=== PATIENT | male | born 1990 | race Caucasian/White ===

== ENCOUNTER 2018-11-30 19:20 | Observation (INO) ==
[2018-11-30] MEDS ORDERED: SODIUM CHLORIDE 0.9% 1000ML 1,000 ML IV ONE (19:49)
--- NOTE | 2018-11-30 19:59 | Emergency Department Note ---
History of Present Illness General Chief complaint: Abdominal Pain Stated complaint: ABDOMINAL PAIN Time Seen by Provider: 11/30/18 19:26 History of Present Illness Maximum Pain Intensity: 2 28-year-old male who presents the emergency department with complaint of right lower quadrant abdominal pain. The patient reports that he noticed the discomfort around midday yesterday. The patient reports that the pain was initially intermittent in nature, but is now more constant. The patient reports that the pain has not changed in position. The pain does not radiate to the back. The patient reports that he has had normal urinary and stool patterns. The patient reports that the pain does seem to be slightly worsened with movement. He denies any fevers, chills, nausea or vomiting. He denies any prior history of bowel disease, and rates his discomfort a 2 out of 10. Allergies Allergy/AdvReac Type Severity Reaction Status Date / Time No Known Allergies Allergy Unverified 11/30/18 22:11 Past Med/Surg History Medical History No significant past medical history Surgical History No significant past surgical history Social History current occupational status: employed Feels Safe at Home: Yes Smoking Status: Never smoker Review of Systems 10 system review was performed and was negative except for pertinent positives and negatives as indicated in history of present illness Physical Exam Vital Signs Vital Signs - 24 hr 11/30/18 19:23 11/30/18 21:20 11/30/18 21:34 Temperature 37.1 C Temperature Source Oral Sepsis Recent Fever Within 48 Hours No Sepsis New/Unexplained Change in Mental Status No Sepsis Action Taken by Nursing No Action Required Pulse Rate 91 H Pulse Rate [Finger] 83 Respiratory Rate 18 18 Respiratory Effort / Characteristics Non-Labored Spontaneous Respiratory Depth Normal Respiratory Pattern Regular Blood Pressure 158/83 H Blood Pressure [Left Arm] 164/93 H Blood Pressure Mean 108 Blood Pressure Mean [Left Arm] 116 Blood Pressure Position Sitting Pulse Oximetry 98 99 Oxygen Delivery Method Room Air Room Air Room Air CONSTITUTIONAL: Healthy and well nourished. Alert and oriented X 3. Patient does not appear in any acute distress. HEENT: Normocephalic, atraumatic. Pupils equal, round and reactive. No scleral icterus or conjunctival injection. NECK: Full active range of motion without discomfort. LYMPHATICS: No cervical chain adenopathy. RESPIRATORY: Clear to auscultation bilaterally with no wheezing, crackles, rhonchi or stridor. CARDIOVASCULAR: Regular rate and rhythm with no murmurs, rubs or gallops. Mildly positive right lower quadrant tenderness to palpation. I am also able to elicit a mild Rovsing sign. Negative psoas/obturator sign. Negative heel tap. Negative CVA tenderness. No abdominal rigidity, guarding or rebound. GASTROINTESTINAL: Bowel sounds present in all quadrants. MUSCULOSKELETAL: Full range of motion of all joints without discomfort. INTEGUMENTARY: No rash or other significant dermatologic conditions noted. HEMATOLOGIC: No ecchymosis or petechiae. PSYCHIATRIC: Positive affect. NEUROLOGIC: No focal neurologic deficits noted. Course Patient history and physical exam were performed. Nurse's notes were reviewed. Vital signs were reviewed, showing an elevated blood pressure of 158/83. The patient refused any analgesics or antiemetics. IV access was established, and labs were drawn. Labs were reviewed and were grossly normal. Urinalysis is also unremarkable without evidence for hematuria or signs of infection. CT of the abdomen and pelvis with IV contrast confirms a mild appendicitis. The case was further discussed with Dr. Harris, ED attending physician, who recommended surgical consultation. The case was further discussed with Dr. Conteh, who came to the emergency department for further evaluation. Please see his dictation for further treatment and final disposition. Administered Medications Ioversol (Optiray 320 100ml) 91 ml IV ONCE PRN PRN Reason: Interaction Checking Stop: 12/04/18 20:32 Last Admin: 11/30/18 20:33 Dose: 91 ml Documented by: [id number] Discontinued Medications Cefazolin Sodium (Ancef) Confirm Administered Dose 1,000 mg .ROUTE .STK-MED ONE Stop: 11/30/18 21:36 Last Admin: 11/30/18 23:30 Dose: 1,000 mg Documented by: [id number] Cefazolin Sodium (Ancef 2000mg) Confirm Administered Dose 2,000 mg IV .STK-MED ONE Stop: 11/30/18 22:03 Last Admin: 11/30/18 22:11 Dose: 2,000 mg Documented by: [id number] Heparin Sodium (Porcine) (Heparin Iv Bolus ([employer] Use Only)) Confirm Administered Dose 10,000 units .ROUTE .STK-MED ONE Stop: 11/30/18 21:36 Last Admin: 11/30/18 23:31 Dose: 5,000 units Documented by: [id number] Sodium Chloride (Nss 1000ml) 1,000 mls @ 999 mls/hr IV .Q1H1M ONE Stop: 11/30/18 20:49 Last Infusion: 11/30/18 20:43 Dose: 0 mls/hr Documented by: [id number] Admin: 11/30/18 19:50 Dose: 999 mls/hr Documented by: [id number] Miscellaneous (Floseal Hemostatic Matrix 10ml) 10 ml TOP ONCE ONE Stop: 11/30/18 23:27 Last Admin: 11/30/18 23:29 Dose: 10 ml Documented by: [id number] Medical Decision Making Medical Records Attestation: I reviewed the patient's medical records. Home Medications Current Medication List: was personally reviewed by me Laboratory Data Attestation: I reviewed the patient's lab results. Result diagrams: 11/30/18 19:57 11/30/18 19:57 Lab Results 11/30/18 11/30/18 11/30/18 Range/Units 19:41 19:57 19:57 WBC 8.50 (4.8-10.8) K/uL RBC 5.39 (4.7-6.1) M/uL Hgb 15.9 (14.0-18.0) g/dL Hct 43.8 (42-52) % MCV 81.3 (80-100) fL MCH 29.5 (25-34) pg MCHC 36.3 H (32-36) g/dL RDW Std Deviation 38.7 (36.4-46.3) fL RDW Coeff of Domenica 13.0 (11.5-14.5) % Plt Count 185 (130-400) K/uL MPV 11.0 H (7.4-10.4) fL Immature Gran % (Auto) 0.1 % Neut % (Auto) 64.4 % Lymph % (Auto) 26.5 % [place] % (Auto) 5.5 % Eos % (Auto) 3.3 % Baso % (Auto) 0.2 % Immature Gran # (Auto) 0.01 (0.00-0.02) K/uL Neut # (Auto) 5.47 (1.4-6.5) K/uL Lymph # (Auto) 2.25 (1.2-3.4) K/uL [place] # (Auto) 0.47 (0.11-0.59) K/uL Eos # (Auto) 0.28 (0-0.5) K/uL Baso # (Auto) 0.02 (0-0.2) K/uL Sodium 138 (136-145) mmol/L Potassium 3.5 (3.5-5.1) mmol/L Chloride 106 (98-107) mmol/L Carbon Dioxide 27 (21-32) mmol/L Anion Gap 5.0 (3-11) BUN 13 (7-18) mg/dl Creatinine 1.25 (0.6-1.4) mg/dl Est Cr Clr Drug Dosing 106.3 ml/min Est GFR ( Amer) 90.9 Est GFR (Non-Af Amer) 78.4 BUN/Creatinine Ratio 10.1 (10-20) Glucose 106 H (70-99) mg/dl Calcium 8.9 (8.5-10.1) mg/dl Total Bilirubin 0.9 (0.2-1) mg/dl AST 19 (15-37) U/L ALT 24 (12-78) U/L Alkaline Phosphatase 84 (45-117) U/L Total Protein 7.7 (6.4-8.2) gm/dl Albumin 4.4 (3.4-5.0) gm/dl Globulin 3.3 (2.5-4.0) gm/dl Albumin/Globulin Ratio 1.3 (0.9-2) Lipase 81 (73-393) U/L Urine Color Yellow Urine Appearance Clear (Clear) Urine pH 6.0 (4.5-7.5) Ur Specific [place] 1.012 (1.000-1.030) Urine Protein Negative (Negative) Urine Glucose (UA) Negative (Negative) Urine Ketones Negative (Negative) Urine Blood Negative (Negative) Urine Nitrite Negative (Negative) Urine Bilirubin Negative (Negative) Urine Urobilinogen Negative (Negative) Ur Leukocyte Esterase Negative (Negative) Imaging Data Attestation: I personally reviewed and interpreted this imaging study as foll ows: My Impression: CT of the abdomen and pelvis with IV contrast shows a mild appendicitis. Radiologist report was also reviewed. Radiologist's Impression: CT OF THE ABDOMEN AND PELVIS WITH CONTRAST CLINICAL HISTORY: Right lower quadrant abdominal pain. COMPARISON STUDY: None. TECHNIQUE: Following IV administration of 91 mL of Optiray-320, axial images of the abdomen and pelvis were obtained from the lung bases to the proximal femurs. Images were reviewed in the axial, sagittal, and coronal planes. IV contrast was administered without complication. Automated exposure control was utilized for the study. A dose lowering technique was utilized adhering to the principles of ALARA. CT DOSE: 724.34 mGy.cm FINDINGS: Lung bases are clear. The liver, spleen, adrenal glands, kidneys and pancreas are normal. There is no biliary or pancreatic ductal dilatation. There is no hydronephrosis. The nephrograms are symmetric. There is no evidence for a bowel obstruction. Note is made of a 3 mm appendicolith within the mid appendix. The mid to distal appendix is mildly dilated, measuring 1 cm in caliber. There is minimal adjacent infiltration. There is no free air or abscess. No lymphadenopathy is present. There is no ascites. There are no suspicious osseous lesions. Major vasculature is patent. IMPRESSION: Mild acute appendicitis. No free air or abscess. Blood Pressure Blood Pressure Findings: Elevated blood pressure MDM Narrative CT findings today are consistent with acute appendicitis. The patient is currently afebrile and has no leukocytosis to suggest overwhelming infection. No free air is noted on CT to suggest perforation. CT scan also is not suggestive of bowel obstruction, diverticulitis or other acute findings. Laboratory studies are not consistent with UTI, pancreatitis, cholecystitis or hepatitis. Impression & Plan Acute appendicitis Discharge Plan Visit Data Chief Complaint: Abdominal Pain Stated Complaint: ABDOMINAL PAIN ED Provider: Lamberto Harris ED Midlevel Provider: Vikas Santiago Discharge Problem: Acute appendicitis Patient Disposition: Admitted As Inpatient Discharge Instructions Interventions: ED Discharge Assessment Last Done: 11/30/18 21:34 Forms Stand Alone Forms: [facility] Referrals Referrals: PCP,NO [Primary Care Provider] - Discharge Problem: Acute appendicitis Qualifiers: Acute appendicitis type: unspecified acute appendicitis type Qualified Code(s): K35.80 - Unspecified acute appendicitis
[2018-11-30 20:01] LABS: Basophils # (auto) 0.02 K/uL (0-0.2); Basophils % (auto) 0.2 %; Eosinophils # (auto) 0.28 K/uL (0-0.5); Eosinophils % (auto) 3.3 %; Hematocrit (blood only) 43.8 % (42-52); Hemoglobin 15.9 g/dL (14.0-18.0); Immature Granulocytes # (auto) 0.01 K/uL (0.00-0.02); Immature Granulocytes % (auto) 0.1 %; Lymphocytes # (auto) 2.25 K/uL (1.2-3.4); Lymphocytes % (auto) 26.5 %; Mean Corpuscular Hemoglobin 29.5 pg (25-34); Mean Corpuscular Hgb Conc 36.3 g/dL (32-36); Mean Corpuscular Volume 81.3 fL (80-100); Monocytes # (auto) 0.47 K/uL (0.11-0.59); Monocytes % (auto) 5.5 %; Neutrophils # (auto) 5.47 K/uL (1.4-6.5); Neutrophils % (auto) 64.4 %; Platelet Count 185 K/uL (130-400); RDW Standard Deviation 38.7 fL (36.4-46.3); Red Blood Count 5.39 M/uL (4.7-6.1)
[2018-11-30 20:19] LABS: Albumin Level 4.4 gm/dl (3.4-5.0); BUN Creatinine Ratio 10.1 (10-20); Calcium 8.9 mg/dl (8.5-10.1); Creatinine Clr Calc Pharmacy 106.3 ml/min; Est GFR (African American) 90.9; Est GFR (Non-African American) 78.4; Potassium 3.5 mmol/L (3.5-5.1)
[2018-11-30 20:22] LABS: Albumin Globulin Ratio 1.3 (0.9-2); Bilirubin,Total 0.9 mg/dl (0.2-1); Globulin 3.3 gm/dl (2.5-4.0); Total Protein 7.7 gm/dl (6.4-8.2)
[2018-11-30] MEDS ORDERED: IOVERSOL 100ml IV PRN (20:33)
[2018-11-30 20:42] LABS: Appearance Urine Clear (Clear); Bilirubin Urine Negative (Negative); Blood Urine Negative (Negative); Color Urine Yellow; Glucose Urine UA Negative (Negative); Ketones Urine Negative (Negative); Leukocyte Esterase Urine Negative (Negative); Nitrite Urine Negative (Negative); Protein Urine Negative (Negative); Specific Gravity Urine 1.012 (1.000-1.030); Urobilinogen Urine Negative (Negative)
--- NOTE | 2018-11-30 20:53 | CT Scan Report ---
CT OF THE ABDOMEN AND PELVIS WITH CONTRAST CLINICAL HISTORY: Right lower quadrant abdominal pain. COMPARISON STUDY: None. TECHNIQUE: Following IV administration of 91 mL of Optiray-320, axial images of the abdomen and pelvi s were obtained from the lung bases to the proximal femurs. Images were reviewed in the axial, sagitt al, and coronal planes. IV contrast was administered without complication. Automated exposure contro l was utilized for the study. A dose lowering technique was utilized adhering to the principles of A JAVON. CT DOSE: 724.34 mGy.cm FINDINGS: Lung bases are clear. The liver, spleen, adrenal glands, kidneys and pancreas are normal. T here is no biliary or pancreatic ductal dilatation. There is no hydronephrosis. The nephrograms are s ymmetric. There is no evidence for a bowel obstruction. Note is made of a 3 mm appendicolith within t he mid appendix. The mid to distal appendix is mildly dilated, measuring 1 cm in caliber. There is mi nimal adjacent infiltration. There is no free air or abscess. No lymphadenopathy is present. There is no ascites. There are no suspicious osseous lesions. Major vasculature is patent. IMPRESSION: Mild acute appendicitis. No free air or abscess. Electronically signed by: Rahat Charles M.D. 11/30/2018 8:52 PM
[2018-11-30] MEDS ORDERED: BUPIVACAINE 0.5 % 5 MG/1 ML MPF 30ML VIAL ONE (21:35)
[2018-11-30] MEDS ORDERED: HEPARIN (PORCINE) 1000 UNIT/ML 10 ML (CATH LAB USE ONLY) ONE (21:35)
[2018-11-30] MEDS ORDERED: CEFAZOLIN 250 MG/ML 1 GM VIAL ONE (21:35)
--- NOTE | 2018-11-30 21:43 | History & Physical Report ---
Date of Service November 30, 2018 Assessment & Plan (1) Acute appendicitis: This patient's history physical examination and CT findings for which I reviewed the images as well as the report are consistent with acute appendicitis. He has an appendicolith which would make antibiotic treatment contraindicated. I explained to him the laparoscopic appendectomy and the possible need to convert to an open procedure. I explained the possible complications associated with the procedure and he understands. I answered his questions and he has signed a consent form. History of Present Illness Chief Complaint: Right lower quadrant pain Primary Care Provider: NO PCP This is a 28-year-old male who presented to the emergency room with a complaint of pain in the right lower quadrant that began sometime yesterday. He is unsure as to exactly when. The pain is always been located in the right lower quadrant. It is exacerbated by movement. He is never had pain like this before. It has not been associated with nausea, vomiting, fever, chills, change in bowel habits, change in bladder habits, melena, hematochezia, dysuria or hematuria. He has not had fever or chills. Past Med/Surg History Medical History No significant past medical history Surgical History No significant past surgical history Social History current occupational status: employed Feels Safe at Home: Yes Smoking Status: Never smoker Review of Systems Review of Systems: All systems reviewed & are unremarkable except as noted in HPI & below Physical Exam Constitutional: + acute distress Neck: trachea midline Respiratory: normal respiratory effort, lungs clear to auscultation Cardiovascular: Rate/Rhythm: regular rate and regular rhythm Gastrointestinal (Abdomen): Inspection/Auscultation: abdomen normal to inspection and normal bowel sounds; abdomen not distended Percussion/Palpation: + abdomen tender (Moderate to severe tenderness to light to moderate palpation in the right lower quadrant) and abdomen soft Skin: no rashes, warm and dry Lymphatic: no cervical lymphadenopathy and no subclavicular lymphadenopathy Results & Data Vital Signs (Past 12 Hours) Vital Signs Temp Pulse Pulse Resp BP BP Pulse Ox 11/30/18 21:20 83 18 164/93 H 99 11/30/18 19:23 37.1 C 91 H 18 158/83 H 98 Laboratory Results 11/30/18 11/30/18 11/30/18 Range/Units 19:57 19:57 19:41 WBC 8.50 (4.8-10.8) K/uL RBC 5.39 (4.7-6.1) M/uL Hgb 15.9 (14.0-18.0) g/dL Hct 43.8 (42-52) % MCV 81.3 (80-100) fL MCH 29.5 (25-34) pg MCHC 36.3 H (32-36) g/dL RDW Std Deviation 38.7 (36.4-46.3) fL RDW Coeff of Domenica 13.0 (11.5-14.5) % Plt Count 185 (130-400) K/uL MPV 11.0 H (7.4-10.4) fL Immature Gran % (Auto) 0.1 % Neut % (Auto) 64.4 % Lymph % (Auto) 26.5 % [place] % (Auto) 5.5 % Eos % (Auto) 3.3 % Baso % (Auto) 0.2 % Immature Gran # (Auto) 0.01 (0.00-0.02) K/uL Neut # (Auto) 5.47 (1.4-6.5) K/uL Lymph # (Auto) 2.25 (1.2-3.4) K/uL [place] # (Auto) 0.47 (0.11-0.59) K/uL Eos # (Auto) 0.28 (0-0.5) K/uL Baso # (Auto) 0.02 (0-0.2) K/uL Sodium 138 (136-145) mmol/L Potassium 3.5 (3.5-5.1) mmol/L Chloride 106 (98-107) mmol/L Carbon Dioxide 27 (21-32) mmol/L Anion Gap 5.0 (3-11) BUN 13 (7-18) mg/dl Creatinine 1.25 (0.6-1.4) mg/dl Est Cr Clr Drug Dosing 106.3 ml/min Est GFR ( Amer) 90.9 Est GFR (Non-Af Amer) 78.4 BUN/Creatinine Ratio 10.1 (10-20) Glucose 106 H (70-99) mg/dl Calcium 8.9 (8.5-10.1) mg/dl Total Bilirubin 0.9 (0.2-1) mg/dl AST 19 (15-37) U/L ALT 24 (12-78) U/L Alkaline Phosphatase 84 (45-117) U/L Total Protein 7.7 (6.4-8.2) gm/dl Albumin 4.4 (3.4-5.0) gm/dl Globulin 3.3 (2.5-4.0) gm/dl Albumin/Globulin Ratio 1.3 (0.9-2) Lipase 81 (73-393) U/L Urine Color Yellow Urine Appearance Clear (Clear) Urine pH 6.0 (4.5-7.5) Ur Specific [place] 1.012 (1.000-1.030) Urine Protein Negative (Negative) Urine Glucose (UA) Negative (Negative) Urine Ketones Negative (Negative) Urine Blood Negative (Negative) Urine Nitrite Negative (Negative) Urine Bilirubin Negative (Negative) Urine Urobilinogen Negative (Negative) Ur Leukocyte Esterase Negative (Negative) Diagnostic Findings CT OF THE ABDOMEN AND PELVIS WITH CONTRAST CLINICAL HISTORY: Right lower quadrant abdominal pain. COMPARISON STUDY: None. TECHNIQUE: Following IV administration of 91 mL of Optiray-320, axial images of the abdomen and pelvis were obtained from the lung bases to the proximal femurs. Images were reviewed in the axial, sagittal, and coronal planes. IV contrast was administered without complication. Automated exposure control was utilized for the study. A dose lowering technique was utilized adhering to the principles of ALARA. CT DOSE: 724.34 mGy.cm FINDINGS: Lung bases are clear. The liver, spleen, adrenal glands, kidneys and p ancreas are normal. There is no biliary or pancreatic ductal dilatation. There is no hydronephrosis. The nephrograms are symmetric. There is no evidence for a bowel obstruction. Note is made of a 3 mm appendicolith within the mid appendix. The mid to distal appendix is mildly dilated, measuring 1 cm in caliber. There is minimal adjacent infiltration. There is no free air or abscess. No lymphadenopathy is present. There is no ascites. There are no suspicious osseous lesions. Major vasculature is patent. IMPRESSION: Mild acute appendicitis. No free air or abscess. (1) Acute appendicitis Acute appendicitis type: unspecified acute appendicitis type Qualified Code(s): K35.80 - Unspecified acute appendicitis
[2018-11-30] MEDS ORDERED: CEFAZOLIN 2,000 MG/15 ML IV PUSH IV ONE (22:02)
[2018-11-30] MEDS ORDERED: MIDAZOLAM HCL 1 MG/ML 2ML VIAL ONE (22:07)
[2018-11-30] MEDS ORDERED: fentaNYL citrate 100 MCG/2 ML VIAL ONE (22:07)
--- NOTE | 2018-11-30 22:33 | Anesthesiology Consultation ---
Date of Service November 30, 2018 Assessment & Plan Chart Review Chart Review: Acceptable Risk for Surgery Consults Requested none History Surgery Operation Date: 11/30/18 21:25 Proposed Procedures p Laparoscopic Appendectomy - Jesse Conteh MD Height/Weight Height: 5 ft 11 in Weight: 98.8 kg Allergies Allergy/AdvReac Type Severity Reaction Status Date / Time No Known Allergies Allergy Unverified 11/30/18 22:11 Medications Active Medications Generic Name Dose Route Start Last Admin Trade Name Freq PRN Reason Stop Dose Admin Ioversol 91 ml 11/30/18 20:33 11/30/18 20:33 Optiray 320 100ml IV 12/04/18 20:32 91 ml ONCE PRN Administration Interaction Checking NPO Date Last Intake of Fluids: 11/30/18 Time Last Intake of Fluids: 19:30 Last Intake of Fluids Comment: ice tea Date Last Intake of Solids: 11/30/18 Time Last Intake of Solids: 19:30 Last Intake of Solids Comment: salad, breadstick, pasta Past Medical History Medical History No significant past medical history Past Surgical History Surgical History No significant past surgical history Social History Smoking Status: Never smoker Physical Exam Vital Signs Last Vital Signs Temp 37.1 C 11/30/18 19:23 Pulse 83 11/30/18 21:20 Resp 18 11/30/18 21:20 BP 164/93 H 11/30/18 21:20 Pulse Ox 99 11/30/18 21:20 Testing Laboratory Results 11/30/18 19:57 11/30/18 19:57 Urine Color Yellow 11/30/18 19:41 Urine Appearance Clear (Clear) 11/30/18 19:41 Urine pH 6.0 (4.5-7.5) 11/30/18 19:41 Ur Specific [place] 1.012 (1.000-1.030) 11/30/18 19:41 Urine Protein Negative (Negative) 11/30/18 19:41 Urine Glucose (UA) Negative (Negative) 11/30/18 19:41 Urine Ketones Negative (Negative) 11/30/18 19:41 Urine Nitrite Negative (Negative) 11/30/18 19:41 Ur Leukocyte Esterase Negative (Negative) 11/30/18 19:41
[2018-11-30] MEDS ORDERED: PROMETHAZINE HCL 12.5 MG in SODIUM CHLORIDE 0.9% 50 ML IV PRN (22:37)
[2018-11-30] MEDS ORDERED: METOCLOPRAMIDE HCL INJ 5 MG/ML 2 ML VIAL IV PRN (22:37)
[2018-11-30] MEDS ORDERED: ePHEDrine sulfate 50 MG/ML AMP IV PRN (22:37)
[2018-11-30] MEDS ORDERED: DEXAMETHASONE SOD INJ 4 MG/ML VIAL IV PRN (22:37)
[2018-11-30] MEDS ORDERED: ATROPINE SULFATE 0.1 MG/ML 10ML SYR IV PRN (22:37)
[2018-11-30] MEDS ORDERED: HYDROmorphone INJ 2 MG/ML SYR/VIAL IV PRN (22:37)
[2018-11-30] MEDS ORDERED: fentaNYL citrate 100 MCG/2 ML VIAL IV PRN (22:37)
[2018-11-30] MEDS ORDERED: ONDANSETRON INJ 2 MG/ML 2 ML VIAL IV PRN (22:37)
[2018-11-30] MEDS ORDERED: ROCURONIUM BROMIDE 10 MG/ML 5 ML VIAL ONE (22:45)
[2018-11-30] MEDS ORDERED: ONDANSETRON INJ 2 MG/ML 2 ML VIAL ONE (23:01)
[2018-11-30] MEDS ORDERED: DEXAMETHASONE SOD INJ 4 MG/ML VIAL ONE (23:01)
[2018-11-30] MEDS ORDERED: GLYCOPYRROLATE 0.2 MG/ML VIAL ONE (23:01)
[2018-11-30] MEDS ORDERED: PROPOFOL IV EMULSION 10 MG/ML 20 ML VIAL IV ONE (23:01)
[2018-11-30] MEDS ORDERED: NEOSTIGMINE METHYLSULFATE 5 MG/5 ML SYR ONE (23:01)
[2018-11-30] MEDS ORDERED: FLOSEAL HEMOSTATIC MATRIX 10ML TOP ONE (23:26)
--- NOTE | 2018-11-30 23:56 | Post Operative Brief Note ---
Immediate Post Op Note v1 Date of Surgery November 30, 2018 Pre & Post Diagnosis Operation Date: 11/30/18 21:25 Pre-Op Diagnosis: Acute Appendicitis Post-Op Diagnosis: Acute Appendicitis I identified the patient and participated in the time-out.: Yes Procedure Operation Date: 11/30/18 21:25 Actual Procedures p Laparoscopic Appendectomy(Not Applicable) - Jesse Conteh MD Surgeon Jesse Conteh MD Facilities Engineering Manager Laureen Botello PA-C Estimated Blood Loss 15 Findings Consistent with Post-Op Diagnosis Specimens Appendix Drains Shearer Catheter (inserted by Klever Jewell without difficulty draining clear yellow, anesthesia monitoring urine output) Anesthesia Type General Complications none
--- NOTE | 2018-12-01 00:38 | Anesthesiology Progress Note ---
Date of Service December 01, 2018 Anesthesia Post Procedure Vital Signs Vital Signs: Temp Pulse Pulse Resp BP BP Pulse Ox 12/01/18 00:35 86 18 155/90 H 96 12/01/18 00:25 91 H 20 155/87 H 97 12/01/18 00:15 36.7 C 90 19 150/95 H 100 12/01/18 00:05 36.7 C 105 H 15 167/72 H 97 11/30/18 21:20 83 18 164/93 H 99 11/30/18 19:23 37.1 C 91 H 18 158/83 H 98 Pain Intensity Abdomen: Pain Intensity: 4 Transfer of Care Handoff Completed per policy Notes Mental Status: alert / awake / arousable and participated in evaluation Patient Amnestic to Procedure: Yes Nausea / Vomiting: adequately controlled Pain: adequately controlled Airway Patency, RR, SpO2: stable & adequate BP & HR: stable & adequate Hydration State: stable & adequate Anesthetic Complications: no major complications apparent
[2018-12-01] MEDS ORDERED: HYDROmorphone INJ 0.5 MG/0.5 ML SYR ONE (00:40)
[2018-12-01] MEDS ORDERED: OXYCODONE/ACETAMINOPHEN 5mg/325mg TAB PO PRN (01:16)
[2018-12-01] MEDS ORDERED: MoRPHine SULFATE 4 MG/ML 1 ML CARP\\VIAL IV PRN (01:16)
--- NOTE | 2018-12-01 01:22 | Operative Report ---
DATE OF OPERATION: 12/01/2018 PREOPERATIVE DIAGNOSIS: Acute appendicitis. POSTOPERATIVE DIAGNOSIS: Acute appendicitis. PROCEDURE: Laparoscopic appendectomy. SURGEON: Jesse Conteh MD FINDINGS: The distal two-thirds of the appendix was dilated, hyperemic and firm. The proximal third and especially the base and the cecum at the base of the appendix were normal. There was no evidence of perforation or abscess. The visible bowel appeared normal. TECHNIQUE: The patient was given a general anesthetic and the area was prepped and draped in the usual sterile fashion. Transverse incision was made below the umbilicus, carried down through the subcutaneous tissue to the fascia which was grasped with 2 Anibal clamps and incised between. The peritoneum was identified, incised, and the introducer was placed bluntly. The abdomen was then insufflated to a pressure of 15 mmHg with carbon dioxide. The skin for the site of the lower midline introducer was anesthetized with 0.5% Marcaine. Skin incision was made and introducer was placed under direct vision. Traction was placed on the cecum and the appendix was easily identified. The left lower quadrant introducer site was identified. The skin and subcutaneous tissue were anesthetized with 0.5% Marcaine. Skin incision was made, and the introducer was placed under direct vision. Traction was placed anteriorly on the appendix. There was some adhesion of the appendix and the mesoappendix to the lateral and posterior abdominal wall that was taken down using blunt and minimal cautery dissection where appropriate allowing me to better elevate the appendix. There was some adhesion of the cecum to the lateral abdominal wall that was divided using cautery and blunt dissection as well which allowed me to roll the cecum medially and identify the base of the appendix on the inferior side. There were some other attachments at the junction of the proximal and medial thirds of the appendix and those were divided to elevate the appendix even further. I was able to establish a plane between the base of the appendix and the mesoappendix, and the mesoappendix was divided using the Endo-SRUTHI. There was some bleeding from the area of dissection and also from the mesoappendix. These areas were controlled with clips. The appendix was then amputated using the Endo-SRUTHI. It was placed into an Endobag and brought out through the left lower quadrant introducer site. That introducer was replaced. The right lower quadrant was irrigated and the irrigation was removed. There were some additional areas of oozing that were controlled with clips and cautery until there was no further oozing. The right lower quadrant was irrigated and irrigation was removed. Any irrigation that entered the right upper quadrant and any that entered the pelvis was removed. The areas of dissection were again inspected and there was no bleeding. The staple line on the mesoappendix and on the cecum were identified. There was no oozing. The gas was allowed to escape and introducers were removed. The fascia of the umbilical and left lower quadrant introducer sites was closed with interrupted 0 Vicryl and skin of all the incisions was closed with 4-0 Monocryl in either an interrupted or running subcuticular fashion. The skin of the umbilical incision was anesthetized with 0.5% Marcaine and the anesthesia in the other incisions was reinforced with additional local. The skin was cleansed, dried, benzoin placed, Steri-Strips applied. Estimated blood loss was 15 mL. Sponge, needle and instrument counts were correct prior to closure. The patient tolerated the surgical procedure without complication and was transferred to recovery. I attest to the content of the Intraoperative Record and any orders documented therein. Any exception s are noted below.
[2018-12-01] MEDS ORDERED: D5W AND 1/2NSS + 20MEQ KCL 20 MEQ/1,000 ML BAG IV SCH (01:30)
[2018-12-01 06:53] VITALS: BP 122/76; PULSE 86; TEMP 97.7; O2SAT 97
--- NOTE | 2018-12-01 07:25 | Anesthesiology Progress Note ---
Date of Service December 01, 2018 Anesthesia Post Procedure Vital Signs Vital Signs: Temp Pulse Pulse Resp BP BP Pulse Ox 12/01/18 06:52 36.5 C 86 19 122/76 97 12/01/18 04:20 37 C 99 H 16 134/65 96 12/01/18 03:12 37.1 C 88 18 121/74 96 12/01/18 02:15 37.2 C 90 16 127/71 97 12/01/18 01:41 36.8 C 98 H 16 137/82 94 12/01/18 01:12 37.6 C H 90 16 126/76 92 12/01/18 01:05 37.6 C H 86 18 126/76 96 12/01/18 01:00 86 16 149/87 H 96 12/01/18 00:55 84 18 143/81 H 96 12/01/18 00:45 83 15 147/87 H 95 12/01/18 00:35 86 18 155/90 H 96 12/01/18 00:25 91 H 20 155/87 H 97 12/01/18 00:15 36.7 C 90 19 150/95 H 100 12/01/18 00:05 36.7 C 105 H 15 167/72 H 97 11/30/18 21:20 83 18 164/93 H 99 11/30/18 19:23 37.1 C 91 H 18 158/83 H 98 Pain Intensity Abdomen: Pain Intensity: 7 Notes Mental Status: alert / awake / arousable and participated in evaluation Nausea / Vomiting: adequately controlled Pain: adequately controlled Airway Patency, RR, SpO2: stable & adequate BP & HR: stable & adequate Hydration State: stable & adequate
[2018-12-01] MEDS ORDERED: INFLUENZA ADMINISTRATION CHARGE ONE (08:00)
[2018-12-01] MEDS ORDERED: INFLUENZA VIRUS QUAD VACCINE 0.5 ML SYR IM ONE (08:00)
--- NOTE | 2018-12-01 09:14 | Surgery Progress Note ---
Date of Service December 01, 2018 Assessment & Plan (1) Acute appendicitis: Postoperative day 0, status post laparoscopic appendectomy Doing well 9 hours postop. Has not eaten yet. If he tolerates breakfast without nausea or increased pain will consider discharge Discussed discharge activity restrictions Can follow-up in 2 weeks Subjective Postoperative day 0, status post laparoscopic appendectomy Having mild abdominal discomfort easily controlled with analgesics Denies nausea Has not eaten yet Has not passed flatus or had bowel movements Physical Exam Gastrointestinal (Abdomen): Inspection/Auscultation: + abdominal surgical incision (Clean, dry and intact); abdomen not distended Percussion/Palpation: + abdomen tender (Incisional only) and abdomen soft Results & Data Vital Signs (Past 12 Hours) Vital Signs Temp Pulse Resp BP Pulse Ox 12/01/18 06:52 36.5 C 86 19 122/76 97 12/01/18 04:20 37 C 99 H 16 134/65 96 12/01/18 03:12 37.1 C 88 18 121/74 96 12/01/18 02:15 37.2 C 90 16 127/71 97 12/01/18 01:41 36.8 C 98 H 16 137/82 94 12/01/18 01:12 37.6 C H 90 16 126/76 92 12/01/18 01:05 37.6 C H 86 18 126/76 96 12/01/18 01:00 86 16 149/87 H 96 12/01/18 00:55 84 18 143/81 H 96 12/01/18 00:45 83 15 147/87 H 95 12/01/18 00:35 86 18 155/90 H 96 12/01/18 00:25 91 H 20 155/87 H 97 12/01/18 00:15 36.7 C 90 19 150/95 H 100 12/01/18 00:05 36.7 C 105 H 15 167/72 H 97 11/30/18 21:20 83 18 164/93 H 99 (1) Acute appendicitis Acute appendicitis type: unspecified acute appendicitis type Qualified Code(s): K35.80 - Unspecified acute appendicitis
--- NOTE | 2018-12-04 07:55 | Discharge Summary ---
Date of Service December 04, 2018 Admission HPI Per Admitting Provider This is a 28-year-old male who presented to the emergency room with a complaint of pain in the right lower quadrant that began sometime yesterday. He is unsure as to exactly when. The pain is always been located in the right lower quadrant. It is exacerbated by movement. He is never had pain like this before. It has not been associated with nausea, vomiting, fever, chills, change in bowel habits, change in bladder habits, melena, hematochezia, dysuria or hematuria. He has not had fever or chills. Principal Diagnosis acute appendicitis Discharge Data Allergies Allergy/AdvReac Type Severity Reaction Status Date / Time No Known Allergies Allergy Unverified 11/30/18 22:11 Consultations 11/30/18 21:09 ED Decision to Admit Stat Procedures Performed Operation Date: 11/30/18 21:25 Actual Procedures p Laparoscopic Appendectomy(Not Applicable) - Jesse Conteh MD Ordered Studies 11/30/18 19:49 CT abd pelvis IV con only Stat Hospital Course (1) Acute appendicitis: Patient was taken to operating room for laparoscopic appendectomy by Dr. Conteh from the emergency department. Patient found to have acute appendicitis without perforation or abscess. Patient tolerated procedure well without any difficulty and was transferred to recovery and then to medical/surgical floor for postop care. Diet was advanced to clear liquids and then as tolerated, PO Percocet prn pain with breakthrough IV morphine, activity as tolerated, and incentive spirometry. Patient was evaluated 8 hours post op. Pain moderate but controlled with Percocet. Tolerated liquids. Had not ambu lated hallway yet. Encouraged to ambulate hallway, diet advanced to regular diet. He was evaluated later in the morning and tolerated reg diet and pain controlled. Patient discharged home on POD # 0 in stable condition. Total Time Total Time Spent Total Time Spent (In Minutes): 30 Total Time Includes: Examination of the Patient, Discharge Planning and Medication Reconciliation Discharge Plan Discharge Items Patient Disposition: Home - Self-Care Reason For Visit: APPENDICITIS Discharge Diagnosis: Acute appendicitis Activity: Per Instructions section Non-emergency contact: Surgeon Call non-emergency contact if: your pain is not controlled, your pain is worsening, your pain is concerning for you, you have a fever, your temperature is above 101, your wound has increased redness, your wound has increased drainage and your wound pain has increased Follow-up/Referrals: PCP,NO [Primary Care Provider] - Diet: Regular Addtl Attending Provider Instructions: Post-Surgical ~Discharge Instructions Activity Recommendations: - lifting limitation: (10 pounds for 2 weeks), - exercise/sex/sports limit: (nonstrenuous for 2 weeks), - driving or machine use limit: (none for 1 week), - Shower/bathe limit: (may shower beginning tomorrow) Diet: - Resume previous diet SPECIAL CARE INSTRUCTIONS: - May shower in 24 hours. Let water run over area and pat dry. - Leave steri strips on for one week. - Call the surgeon's office with any questions or concerns - - (ex. temperature higher than 101 degrees F, excessive bleeding or pain). MEDICATIONS: - Resume previous medications unless instructed otherwise by your surgeon. - Ibuprofen 600 mg every 6 hours with food - Percocet 1 every 4 hours, as needed for pain FOLLOW UP VISIT: - If not already scheduled, please call the office to schedule a two week follow-up appointment. Office number Pending Studies at Discharge: Yes (appendix pathology, will be reviewed at follow up visit) Studies:: Pathology Stand-Alone Forms: [facility], Opioid Pain Management, Work/School Release (Inpt), Smoking Cessation Medications and DC Order Prescriptions: New oxycodone-acetaminophen [Percocet] 5-325 mg Tablet 1 tab PO Q4H PRN (Reason: pain) Qty: 5 RF: 0 Discharge Orders: Discharge Order (Routine); Ordered 12/01/18 Ordered By: Jesse Conteh Admission Data Admit Date/Time: 12/01/18 00:00 Attending Provider: Jesse Conteh Admit Provider: Jesse Conteh Primary Care Provider: PCP,NO Other Providers: Jesse Conteh Other Interventions: Discharge Summary Assessment (RN) Last Done: 12/01/18 10:55 DC Date/Time DO NOT enter until pt leaves facility: 12/01/18 11:20
[2018-12-09] MEDS ORDERED: ONDANSETRON INJ 2 MG/ML 2 ML VIAL IV PRN (03:58)
[2018-12-09] MEDS ORDERED: ACETAMINOPHEN 325 MG TAB PO PRN (03:58)
[2018-12-09] MEDS ORDERED: OXYCODONE/ACETAMINOPHEN 5mg/325mg TAB PO PRN (03:58)
[2018-12-09] MEDS ORDERED: PIPERACILL/TAZOBAC CONSULT ACTIVE PRN (03:58)
[2018-12-09] MEDS ORDERED: PIPERACILLIN/TAZOBACTAM 3.375 GM in DEXTROSE 5% 100 ML IV SCH (04:00)
[2018-12-09] MEDS ORDERED: LACTATED RINGER'S 1,000 ML IV SCH (04:00)
--- NOTE | 2018-12-09 04:11 | Surgery Consultation ---
Date of Consultation December 09, 2018 Assessment & Plan (1) Postoperative abdominal pain: pt is a 28 year-old male who is POD 8 lap appy, today pt develops abdominal pain with fever, IMP: S/P laparoscopic appendectomy, abdominal pain, fever, Plan, I recommend to admit to hospital further treatment, possible to R/O hematoma, or leak, NPO, IV fluid, antibiotic, DR. Conteh will come in today to see pt, pt agrees with the plan, History of Present Illness Attending Physician: Jesse Conteh MD CC: abdominal pain, with fever HPI: pt is a 28 year-old male who is post-op laparoscopic appendectomy, POD 8, pt presents to ER with abdominal pain and fever, fever T 101, the abdominal pain is located at RLQ area, pt denies nausea, no vomiting, last BM 2 days ago, at ER pt's HR 120, pt had CT scan at ER Dx -Extensive stranding about the cecum and terminal ileum, centered at the appendectomy site, no definable abscess, moderate volume free fluid in the right lower abdominal quadrant and pelvis. Allergies Allergy/AdvReac Type Severity Reaction Status Date / Time No Known Allergies Allergy Unverified 12/09/18 01:26 Home Medications Home Medications Medication Instructions Recorded Confirmed Type ibuprofen [Motrin IB] 400 mg PO QID PRN 12/09/18 12/09/18 History Patient History Medical History No significant past medical history Surgical History No significant past surgical history Social History Preferred Language: Korean Communication Ability: Effective Medical Consultant Required: No Beliefs That Will Affect Care: None Current Living Situation: Spouse Current Living Situation Comment: fiance current occupational status: employed Feels Safe at Home: Yes Smoking Status: Current some day smoker Hx Alcohol Use: Yes Alcohol type: beer Hx Substance Use: No Review of Systems Review of Systems: All systems reviewed & are unremarkable except as noted in HPI & below Physical Exam Constitutional: WD/WN, vitals as above well developed and well nourished ENMT: external ear and nose normal, oropharynx normal Neck: trachea midline, no thyromegaly Respiratory: normal respiratory effort, lungs clear to auscultation Cardiovascular: RRR, no murmur, no edema Rate/Rhythm: regular rate, regular rhythm and + tachycardic Heart Sounds: normal S1 and normal S2 Gastrointestinal (Abdomen): soft. tenderness at RLQ, no rebound pain, no distend, BS + Musculoskeletal: no cyanosis or clubbing, extremities motor strength 5/5 Skin: no rashes, warm and dry Neurologic: patellar DTR's 2+ bilat, sensation intact Psychiatric: Orientation: alert and oriented x 3 Results & Data Laboratory Results Abnormal Labs 11/30/18 11/30/18 19:57 19:57 MCHC 36.3 H MPV 11.0 H Glucose 106 H
== END 2018-12-01 11:20 | disposition home or self-care (01) ==
LOC: ED 19:20 → 3N 19:20
DX: K35.80 Unspecified acute appendicitis

== ENCOUNTER 2018-12-09 00:56 | Inpatient (IN) ==
[2018-12-09] MEDS ORDERED: SODIUM CHLORIDE 0.9% 1000ML 1,000 ML IV SCH (01:15)
[2018-12-09 01:40] LABS: Basophils # (auto) 0.01 K/uL (0-0.2); Basophils % (auto) 0.1 %; Eosinophils # (auto) 0.32 K/uL (0-0.5); Hematocrit (blood only) 42.7 % (42-52); Hemoglobin 15.3 g/dL (14.0-18.0); Immature Granulocytes # (auto) 0.02 K/uL (0.00-0.02); Immature Granulocytes % (auto) 0.2 %; Lymphocytes # (auto) 1.34 K/uL (1.2-3.4); Lymphocytes % (auto) 12.5 %; Mean Corpuscular Hemoglobin 29.4 pg (25-34); Mean Corpuscular Hgb Conc 35.8 g/dL (32-36); Mean Platelet Volume 10.9 fL (7.4-10.4); Monocytes # (auto) 1.34 K/uL (0.11-0.59); Monocytes % (auto) 12.5 %; Neutrophils # (auto) 7.72 K/uL (1.4-6.5); Neutrophils % (auto) 71.7 %; Platelet Count 201 K/uL (130-400); RDW Coefficient of Variation 12.8 % (11.5-14.5); RDW Standard Deviation 38.5 fL (36.4-46.3); Red Blood Count 5.21 M/uL (4.7-6.1); White Blood Count 10.75 K/uL (4.8-10.8)
[2018-12-09 02:03] LABS: Albumin Level 3.7 gm/dl (3.4-5.0); BUN Creatinine Ratio 14.5 (10-20); Calcium 8.5 mg/dl (8.5-10.1); Creatinine Clr Calc Pharmacy 107.2 ml/min; Est GFR (African American) 91.8; Est GFR (Non-African American) 79.2; Potassium 3.8 mmol/L (3.5-5.1)
[2018-12-09 02:04] LABS: Bilirubin,Total 0.6 mg/dl (0.2-1); Globulin 3.6 gm/dl (2.5-4.0); Total Protein 7.3 gm/dl (6.4-8.2)
[2018-12-09] MEDS ORDERED: IOVERSOL 100ml IV PRN (02:38)
--- NOTE | 2018-12-09 02:59 | Emergency Department Note ---
History of Present Illness General Chief complaint: Fever Stated complaint: FEVER AND NECK PAIN 5 DAYS Time Seen by Provider: 12/09/18 01:05 History of Present Illness Maximum Pain Intensity: 1 This is a 28-year-old male that presents to the emergency department via private vehicle with complaints of "fever". The patient states that on 1024 he underwent appendectomy by Dr. Conteh here. The patient states that he has been doing well with just minimal abdominal pain when he awoke today he had a tremendous amount of diffuse abdominal pain. He notes a mild fever yesterday and today. T-max around 100.1. He denies any neck pain, headache, nausea, chills. He denies taking any pain medication over the past 2 days. Pain currently a 02/16. Home Medications Home Medications Medication Instructions Recorded Confirmed Type ibuprofen [Motrin IB] 400 mg PO QID PRN 12/09/18 12/09/18 History Allergies Allergy/AdvReac Type Severity Reaction Status Date / Time No Known Allergies Allergy Unverified 12/09/18 01:26 Past Med/Surg History Medical History Acute appendicitis (Resolved) Surgical History History of appendectomy Social History Preferred Language: Gabonese Communication Ability: Effective Benzene Worker Required: No Beliefs That Will Affect Care: None Current Living Situation: Spouse Current Living Situation Comment: fiance current occupational status: employed Other Information That Helps Us Care for You: No Feels Safe at Home: Yes Safety Concerns: Feels Safe At This Time Smoking Status: Current some day smoker Tobacco Type: cigarettes ; Do You Dip or Chew Tobacco: No ; Second Hand Exposure: No ; Hx Alcohol Use: Yes Alcohol type: beer and wine Hx Substance Use: No Review of Systems A total of 10 systems reviewed and were otherwise negative Physical Exam Vital Signs Vital Signs - 24 hr 12/09/18 00:57 12/09/18 02:42 12/09/18 04:11 Temperature 36.8 C Temperature Source Oral Sepsis Recent Fever Within 48 Hours Yes Sepsis New/Unexplained Change in Mental Status No Sepsis Action Taken by Nursing No Action Required Pulse Rate 118 H Pulse Rate [Finger] 118 H 104 H Respiratory Rate 16 20 16 Respiratory Effort / Characteristics Non-Labored Spontaneous Non-Labored Spontaneous Respiratory Depth Normal Normal Blood Pressure 116/71 Blood Pressure [Left Arm] 126/77 114/69 Blood Pressure Mean 86 Blood Pressure Mean [Left Arm] 93 84 Blood Pressure Position Sitting Blood Pressure Position [Left Arm] Lying Pulse Oximetry 96 98 100 Oxygen Delivery Method Room Air Room Air Room Air VITAL SIGNS - Vital signs and nursing notes were reviewed. Stable and afebrile. GENERAL - 28-year-old male appearing his stated age who is in no acute distress. Communicates well with provider and answers questions appropriately. SKIN - Without rashes. No meningeal or petechial rash. Well-healing abdominal incisions. Mild bruising periumbilical region. HEAD - NC/AT. EYES - Palpebral conjunctiva pink and moist with no injection noted. EARS - No deformities of external structures noted on gross examination bilaterally. NOSE - Midline and without cyanosis. No epistaxis or purulent drainage noted. MOUTH/OROPHARYNX - Without perioral cyanosis. NECK - Neck with FROM. No nuchal rigidity. LUNGS - Chest wall symmetric without accessory muscle use, intercostals retractions, or central cyanosis. Normal vesicular breath sounds CTA B/L. No wheezes, rales, or rhonchi appreciated. CARDIAC - RRR with S1/S2. No murmur, rubs, or gallops appreciated. ABDOMEN - Abdominal contour normal without pulsations or visible masses. BS normoactive all four quadrants. No definite tenderness, palpable masses, hepatosplenomegaly, or ascites noted. EXTREMITIES - No clubbing or peripheral cyanosis. No pretibial edema present. +5/5 strength noted in UE/LE bilaterally. NEUROLOGIC - Cranial nerves II through XII grossly intact. Sensory intact to light touch throughout. PSYCH - A&O, and cooperates fully with examiner. Pt is very pleasant and interacts well with examiner. Course Administered Medications Ioversol (Optiray 320 100ml) 94 ml IV ONCE PRN PRN Reason: Interaction Checking Stop: 12/13/18 02:37 Last Admin: 12/09/18 02:38 Dose: 94 ml Documented by: [id number] Discontinued Medications Sodium Chloride (Nss 1000ml) 1,000 mls @ 999 mls/hr IV .Q1H1M VALERIE Stop: 12/09/18 02:15 Last Infusion: 12/09/18 02:39 Dose: 0 mls/hr Documented by: [id number] Admin: 12/09/18 01:29 Dose: 999 mls/hr Documented by: [id number] Medical Decision Making Laboratory Data Result diagrams: 12/09/18 01:19 12/09/18 01:19 Lab Results 12/09/18 12/09/18 12/09/18 Range/Units 01:19 01:19 01:20 WBC 10.75 (4.8-10.8) K/uL RBC 5.21 (4.7-6.1) M/uL Hgb 15.3 (14.0-18.0) g/dL Hct 42.7 (42-52) % MCV 82.0 (80-100) fL MCH 29.4 (25-34) pg MCHC 35.8 (32-36) g/dL RDW Std Deviation 38.5 (36.4-46.3) fL RDW Coeff of Domenica 12.8 (11.5-14.5) % Plt Count 201 (130-400) K/uL MPV 10.9 H (7.4-10.4) fL Immature Gran % (Auto) 0.2 % Neut % (Auto) 71.7 % Lymph % (Auto) 12.5 % [place] % (Auto) 12.5 % Eos % (Auto) 3.0 % Baso % (Auto) 0.1 % Immature Gran # (Auto) 0.02 (0.00-0.02) K/uL Neut # (Auto) 7.72 H (1.4-6.5) K/uL Lymph # (Auto) 1.34 (1.2-3.4) K/uL [place] # (Auto) 1.34 H (0.11-0.59) K/uL Eos # (Auto) 0.32 (0-0.5) K/uL Baso # (Auto) 0.01 (0-0.2) K/uL Sodium 138 (136-145) mmol/L Potassium 3.8 (3.5-5.1) mmol/L Chloride 103 (98-107) mmol/L Carbon Dioxide 29 (21-32) mmol/L Anion Gap 6.0 (3-11) BUN 18 (7-18) mg/dl Creatinine 1.24 (0.6-1.4) mg/dl Est Cr Clr Drug Dosing 107.2 ml/min Est GFR ( Amer) 91.8 Est GFR (Non-Af Amer) 79.2 BUN/Creatinine Ratio 14.5 (10-20) Glucose 107 H (70-99) mg/dl Calcium 8.5 (8.5-10.1) mg/dl Total Bilirubin 0.6 (0.2-1) mg/dl AST 15 (15-37) U/L ALT 25 (12-78) U/L Alkaline Phosphatase 91 (45-117) U/L Total Protein 7.3 (6.4-8.2) gm/dl Albumin 3.7 (3.4-5.0) gm/dl Globulin 3.6 (2.5-4.0) gm/dl Albumin/Globulin Ratio 1.0 (0.9-2) Influenza Type A Ag Neg for Influ A (Neg) Influenza Type B Ag Neg for Influ B (Neg) Imaging Data Radiologist's Impression: CT ABDOMEN & PELVIS With Contrast: Extensive stranding about the cecum and terminal ileum centered at the appendectomy site. No definable abscess. Moderate volume free fluid in the right lower abdominal quadrant and pelvis. Radiologist: Jorge Frederick MD Study ready at 02:30 and initial results transmitted at 02:46 MDM Narrative Patient was seen and evaluated as above in room B9. Review was performed of nurs ing notes and vital signs. After obtaining a thorough history and physical examination the above work up was performed. He presents to us today with fever for the past 2 days and now abdominal pain when he awoke today that was pretty severe. He 7 a days ago underwent appendectomy, and has been doing well up into the past 2 days. I will note he is quite tachycardic on examination around 118 to 120 bpm. Otherwise vital signs stable. He did have Motrin prior to arrival which certainly could mask a fever. IV access was established. He was given fluids. CBC reveals no leukocytosis or anemia. No emergent metabolic disturbance. Influenza testing negative. Patient has no other signs of viral illness or other febrile source. CT scan was obtained given the presentation. Results as above. There is extensive stranding about the cecum and terminal ileum no drainable abscess. There is also moderate volume free fluid in the right lower quadrant and pelvis. Although certainly these could be expected postoperative findings, given the patient's tachycardia, symptoms and presentation believe that further evaluation and management is warranted by the surgical team. I then consulted the general surgeon, and Dr. Mcelroy came to evaluate the patient. He will admit the patient for further evaluation and management. Case was discussed with the attending physician. In the evaluation and treatment of this patient, the following differential diagnoses were considered: ASC, [place], Pneumonia, GERD, Cholecystitis, Ascending Cholangitis, Cholydocholithiasis, Bowel Obstruction, PE, Amongst Others. Impression & Plan Postoperative abdominal pain, Tachycardia Discharge Plan Visit Data *Final* Discharge Date/Time: 12/09/18 06:23 Chief Complaint: Fever Stated Complaint: FEVER AND NECK PAIN 5 DAYS ED Provider: Clifton Li ED Midlevel Provider: Naseem Baldwin Discharge Problem: Postoperative abdominal pain, Tachycardia Patient Disposition: Admitted As Inpatient Condition: Good Discharge Instructions Interventions: ED Discharge Assessment Last Done: 12/09/18 06:23
[2018-12-09] MEDS ORDERED: PIPERACILL/TAZOBAC CONSULT ACTIVE PRN (06:30)
[2018-12-09] MEDS ORDERED: PIPERACILLIN/TAZOBACTAM 3.375 GM in DEXTROSE 5% 100 ML IV ONE (06:30)
[2018-12-09] MEDS ORDERED: OXYCODONE/ACETAMINOPHEN 5mg/325mg TAB PO PRN (06:30)
--- NOTE | 2018-12-09 07:46 | CT Scan Report ---
ABDOMEN AND PELVIS CT WITH IV CONTRAST CT DOSE: 633.37 mGy.cm HISTORY: Acute fever with generalized abdominal pain and recent appendectomy Fever, abd pain, append ectomy 12/01/18 TECHNIQUE: Multiaxial CT images of the abdomen and pelvis were performed following the IV administrat ion of 94 cc of Optiray 320, A dose lowering technique was utilized adhering to the principles of AL HIRO. COMPARISON STUDY: CT abdomen and pelvis 11/30/2018 FINDINGS: Minimal right lung base opacities suggestive of atelectasis. No pneumatosis or pneumoperitoneum ident ified. The imaged inferior cardiac chambers are unremarkable. Spleen, pancreas, adrenal glands, gallb ladder and liver appear unremarkable. Right kidney is unremarkable. Punctate radiodensity of the infe rior pole left kidney may reflect a tiny nonobstructing calculus versus contrast. Mild nonspecific ur inary bladder wall thickening. Aorta and IVC are unremarkable. No bowel obstruction. Postoperative changes compatible with recent appendectomy. There is moderate wa ll thickening of the cecum and terminal ileum with extensive mesenteric inflammation. 7 mm nodular de nsities suggest probable lymph node on image 320 series 3. Small volume of free fluid centered about the abdominal right lower quadrant tracks into the dependent pelvis. No drainable fluid collection. M ildly enlarged lymph nodes measure up to 1.6 x 1.2 cm. Stranding of the anterior abdominal wall likel y secondary to laparoscopic technique. The bones appear intact. IMPRESSION: 1. Findings compatible with recent laparoscopic appendectomy. There is wall thickening of the cecum a nd terminal ileum with extensive adjacent inflammation and small to moderate volume of free fluid. Th bill findings appear greater than expected in the postsurgical setting and are suspicious for phlegmon without drainable fluid collection identified at this time. Surgical consultation advised. 2. Mildly enlarged lymph nodes of the right lower quadrant mesentery are likely reactive. 3. No bowel obstruction or pneumoperitoneum. Electronically signed by: Hugo Archer M.D. 12/09/2018 7:44 AM
[2018-12-09] MEDS: LACTATED RINGER'S 1,000 ML IV SCH ×2 (09:17→19:09)
--- NOTE | 2018-12-09 10:07 | Surgery Progress Note ---
Date of Service December 09, 2018 Assessment & Plan (1) Postoperative abdominal pain: I reviewed the CAT scan images and report Phlegmon in the right lower quadrant without drainable collection Etiology is unclear after appendectomy We will continue with IV antibiotics and conservative measures. Would continue n.p.o. for now Subjective Pain level unchanged and is intermittent Denies nausea and vomiting Had bowel movement this morning Physical Exam Gastrointestinal (Abdomen): Inspection/Auscultation: normal bowel sounds and + abdominal surgical incision (Clean, dry and intact); abdomen not distended Percussion/Palpation: + abdomen tender (Right lower quadrant) and abdomen soft; no abdominal mass Results & Data Vital Signs (Past 12 Hours) Vital Signs Temp Pulse Pulse Resp BP BP Pulse Ox 12/09/18 07:12 37.5 C 95 H 18 125/78 97 12/09/18 06:30 37.2 C 90 16 118/82 98 12/09/18 06:16 100 H 16 120/56 L 98 12/09/18 04:11 104 H 16 114/69 100 12/09/18 02:42 118 H 20 126/77 98 12/09/18 00:57 36.8 C 118 H 16 116/71 96 Laboratory Results 12/09/18 12/09/18 12/09/18 Range/Units 01:20 01:19 01:19 WBC 10.75 (4.8-10.8) K/uL RBC 5.21 (4.7-6.1) M/uL Hgb 15.3 (14.0-18.0) g/dL Hct 42.7 (42-52) % MCV 82.0 (80-100) fL MCH 29.4 (25-34) pg MCHC 35.8 (32-36) g/dL RDW Std Deviation 38.5 (36.4-46.3) fL RDW Coeff of Domenica 12.8 (11.5-14.5) % Plt Count 201 (130-400) K/uL MPV 10.9 H (7.4-10.4) fL Immature Gran % (Auto) 0.2 % Neut % (Auto) 71.7 % Lymph % (Auto) 12.5 % [place] % (Auto) 12.5 % Eos % (Auto) 3.0 % Baso % (Auto) 0.1 % Immature Gran # (Auto) 0.02 (0.00-0.02) K/uL Neut # (Auto) 7.72 H (1.4-6.5) K/uL Lymph # (Auto) 1.34 (1.2-3.4) K/uL [place] # (Auto) 1.34 H (0.11-0.59) K/uL Eos # (Auto) 0.32 (0-0.5) K/uL Baso # (Auto) 0.01 (0-0.2) K/uL Sodium 138 (136-145) mmol/L Potassium 3.8 (3.5-5.1) mmol/L Chloride 103 (98-107) mmol/L Carbon Dioxide 29 (21-32) mmol/L Anion Gap 6.0 (3-11) BUN 18 (7-18) mg/dl Creatinine 1.24 (0.6-1.4) mg/dl Est Cr Clr Drug Dosing 107.2 ml/min Est GFR ( Amer) 91.8 Est GFR (Non-Af Amer) 79.2 BUN/Creatinine Ratio 14.5 (10-20) Glucose 107 H (70-99) mg/dl Calcium 8.5 (8.5-10.1) mg/dl Total Bilirubin 0.6 (0.2-1) mg/dl AST 15 (15-37) U/L ALT 25 (12-78) U/L Alkaline Phosphatase 91 (45-117) U/L Total Protein 7.3 (6.4-8.2) gm/dl Albumin 3.7 (3.4-5.0) gm/dl Globulin 3.6 (2.5-4.0) gm/dl Albumin/Globulin Ratio 1.0 (0.9-2) Influenza Type A Ag Neg for Influ A (Neg) Influenza Type B Ag Neg for Influ B (Neg)
[2018-12-09] MEDS: PIPERACILLIN/TAZOBACTAM 3.375 GM in DEXTROSE 5% 100 ML IV SCH ×3 (13:17→21:26)
[2018-12-09 15:03] LABS: Appearance Urine Clear (Clear); Bilirubin Urine Negative (Negative); Blood Urine Negative (Negative); Color Urine Yellow; Glucose Urine UA Negative (Negative); Ketones Urine Negative (Negative); Leukocyte Esterase Urine Negative (Negative); Nitrite Urine Negative (Negative); Protein Urine Negative (Negative); Specific Gravity Urine 1.045 (1.000-1.030); Urobilinogen Urine Negative (Negative)
[2018-12-09] MEDS: ACETAMINOPHEN 1,000 MG/100 ML VIAL IV PRN (20:51)
[2018-12-10] MEDS: LACTATED RINGER'S 1,000 ML IV SCH ×3 (03:48→19:10)
[2018-12-10] MEDS: PIPERACILLIN/TAZOBACTAM 3.375 GM in DEXTROSE 5% 100 ML IV SCH ×3 (03:48→19:10)
[2018-12-10 06:57] LABS: Creatinine Clr Calc Pharmacy 135.8 ml/min; Est GFR (Non-African American) 105.2
[2018-12-10 08:28] LABS: Basophils # (auto) 0.02 K/uL (0-0.2); Basophils % (auto) 0.2 %; Eosinophils # (auto) 0.42 K/uL (0-0.5); Eosinophils % (auto) 4.3 %; Hematocrit (blood only) 39.8 % (42-52); Hemoglobin 13.9 g/dL (14.0-18.0); Immature Granulocytes # (auto) 0.01 K/uL (0.00-0.02); Immature Granulocytes % (auto) 0.1 %; Lymphocytes # (auto) 1.29 K/uL (1.2-3.4); Lymphocytes % (auto) 13.1 %; Mean Corpuscular Hemoglobin 29.4 pg (25-34); Mean Corpuscular Hgb Conc 34.9 g/dL (32-36); Mean Corpuscular Volume 84.1 fL (80-100); Mean Platelet Volume 11.3 fL (7.4-10.4); Monocytes # (auto) 1.27 K/uL (0.11-0.59); Monocytes % (auto) 12.9 %; Neutrophils # (auto) 6.84 K/uL (1.4-6.5); Neutrophils % (auto) 69.4 %; Platelet Count 180 K/uL (130-400); RDW Coefficient of Variation 12.8 % (11.5-14.5); RDW Standard Deviation 38.9 fL (36.4-46.3); Red Blood Count 4.73 M/uL (4.7-6.1); White Blood Count 9.85 K/uL (4.8-10.8)
[2018-12-10 08:31] LABS: BUN Creatinine Ratio 9.4 (10-20); Calcium 8.6 mg/dl (8.5-10.1); Creatinine Clr Calc Pharmacy 125.6 ml/min; Est GFR (African American) 110.9; Est GFR (Non-African American) 95.7; Potassium 3.7 mmol/L (3.5-5.1)
[2018-12-10] MEDS ORDERED: ONDANSETRON INJ 2 MG/ML 2 ML VIAL IV PRN (10:27)
--- NOTE | 2018-12-10 10:30 | Surgery Progress Note ---
Date of Service December 10, 2018 Assessment & Plan (1) Postoperative abdominal pain: Phlegmon in the right lower quadrant without drainable collection Etiology is unclear after appendectomy We will continue with IV antibiotics and conservative measures. Would continue n.p.o. for now increase fluids to 150 mls/hr cbc and bmp am labs while npo encourage ambulation Dr. Conteh has seen and examined pt, agrees with above Subjective still having pain but controlled passing flatus, no bowel movement no n/v ambulated hallway, pain more with activity or movement burning on urination in the lower abdomen/suprapubic area, no dysuria, dark urine Physical Exam Constitutional: WD/WN, vitals as above no acute distress Gastrointestinal (Abdomen): Inspection/Auscultation: abdomen normal to inspection; abdomen not distended Percussion/Palpation: + abdomen tender (RLQ but improved) and abdomen soft; no guarding and abdomen not rigid Skin: no rashes, warm and dry + incision (clean/dry/intact) Psychiatric: A+Ox3, euthymic affect Results & Data Vital Signs (Past 12 Hours) Vital Signs Temp Pulse Resp BP Pulse Ox 12/10/18 07:14 36.9 C 98 H 19 125/71 95 12/09/18 23:40 37.3 C Laboratory Results 12/10/18 12/10/18 12/10/18 Range/Units 05:11 05:08 05:08 WBC 9.85 (4.8-10.8) K/uL RBC 4.73 (4.7-6.1) M/uL Hgb 13.9 L (14.0-18.0) g/dL Hct 39.8 L (42-52) % MCV 84.1 (80-100) fL MCH 29.4 (25-34) pg MCHC 34.9 (32-36) g/dL RDW Std Deviation 38.9 (36.4-46.3) fL RDW Coeff of Domenica 12.8 (11.5-14.5) % Plt Count 180 (130-400) K/uL MPV 11.3 H (7.4-10.4) fL Immature Gran % (Auto) 0.1 % Neut % (Auto) 69.4 % Lymph % (Auto) 13.1 % [place] % (Auto) 12.9 % Eos % (Auto) 4.3 % Baso % (Auto) 0.2 % Immature Gran # (Auto) 0.01 (0.00-0.02) K/uL Neut # (Auto) 6.84 H (1.4-6.5) K/uL Lymph # (Auto) 1.29 (1.2-3.4) K/uL [place] # (Auto) 1.27 H (0.11-0.59) K/uL Eos # (Auto) 0.42 (0-0.5) K/uL Baso # (Auto) 0.02 (0-0.2) K/uL Sodium 138 (136-145) mmol/L Potassium 3.7 (3.5-5.1) mmol/L Chloride 104 (98-107) mmol/L Carbon Dioxide 26 (21-32) mmol/L Anion Gap 7.0 (3-11) BUN 10 D (7-18) mg/dl Creatinine 0.98 1.06 (0.6-1.4) mg/dl Est Cr Clr Drug Dosing 135.8 125.6 ml/min Est GFR ( Amer) 122.0 110.9 Est GFR (Non-Af Amer) 105.2 95.7 BUN/Creatinine Ratio 9.4 L (10-20) Glucose 78 (70-99) mg/dl Calcium 8.6 (8.5-10.1) mg/dl Urine Color Urine Appearance (Clear) Urine pH (4.5-7.5) Ur Specific [place] (1.000-1.030) Urine Protein (Negative) Urine Glucose (UA) (Negative) Urine Ketones (Negative) Urine Blood (Negative) Urine Nitrite (Negative) Urine Bilirubin (Negative) Urine Urobilinogen (Negative) Ur Leukocyte Esterase (Negative) 12/09/18 Range/Units 14:30 WBC (4.8-10.8) K/uL RBC (4.7-6.1) M/uL Hgb (14.0-18.0) g/dL Hct (42-52) % MCV (80-100) fL MCH (25-34) pg MCHC (32-36) g/dL RDW Std Deviation (36.4-46.3) fL RDW Coeff of Domenica (11.5-14.5) % Plt Count (130-400) K/uL MPV (7.4-10.4) fL Immature Gran % (Auto) % Neut % (Auto) % Lymph % (Auto) % [place] % (Auto) % Eos % (Auto) % Baso % (Auto) % Immature Gran # (Auto) (0.00-0.02) K/uL Neut # (Auto) (1.4-6.5) K/uL Lymph # (Auto) (1.2-3.4) K/uL [place] # (Auto) (0.11-0.59) K/uL Eos # (Auto) (0-0.5) K/uL Baso # (Auto) (0-0.2) K/uL Sodium (136-145) mmol/L Potassium (3.5-5.1) mmol/L Chloride (98-107) mmol/L Carbon Dioxide (21-32) mmol/L Anion Gap (3-11) BUN (7-18) mg/dl Creatinine (0.6-1.4) mg/dl Est Cr Clr Drug Dosing ml/min Est GFR ( Amer) Est GFR (Non-Af Amer) BUN/Creatinine Ratio (10-20) Glucose (70-99) mg/dl Calcium (8.5-10.1) mg/dl Urine Color Yellow Urine Appearance Clear (Clear) Urine pH 6.0 (4.5-7.5) Ur Specific [place] 1.045 H (1.000-1.030) Urine Protein Negative (Negative) Urine Glucose (UA) Negative (Negative) Urine Ketones Negative (Negative) Urine Blood Negative (Negative) Urine Nitrite Negative (Negative) Urine Bilirubin Negative (Negative) Urine Urobilinogen Negative (Negative) Ur Leukocyte Esterase Negative (Negative)
[2018-12-10] MEDS: ACETAMINOPHEN 1,000 MG/100 ML VIAL IV PRN ×2 (11:13→23:22)
[2018-12-11] MEDS: LACTATED RINGER'S 1,000 ML IV SCH ×4 (01:36→21:06)
[2018-12-11] MEDS: PIPERACILLIN/TAZOBACTAM 3.375 GM in DEXTROSE 5% 100 ML IV SCH ×2 (03:33→21:06)
[2018-12-11 05:35] LABS: Basophils # (auto) 0.01 K/uL (0-0.2); Basophils % (auto) 0.1 %; Eosinophils # (auto) 0.54 K/uL (0-0.5); Eosinophils % (auto) 6.4 %; Hematocrit (blood only) 39.5 % (42-52); Immature Granulocytes # (auto) 0.01 K/uL (0.00-0.02); Immature Granulocytes % (auto) 0.1 %; Lymphocytes # (auto) 1.42 K/uL (1.2-3.4); Lymphocytes % (auto) 16.9 %; Mean Corpuscular Hemoglobin 29.4 pg (25-34); Mean Corpuscular Hgb Conc 35.4 g/dL (32-36); Mean Corpuscular Volume 82.8 fL (80-100); Mean Platelet Volume 10.9 fL (7.4-10.4); Monocytes # (auto) 1.27 K/uL (0.11-0.59); Monocytes % (auto) 15.2 %; Neutrophils # (auto) 5.13 K/uL (1.4-6.5); Neutrophils % (auto) 61.3 %; Platelet Count 194 K/uL (130-400); RDW Coefficient of Variation 12.6 % (11.5-14.5); RDW Standard Deviation 38.1 fL (36.4-46.3); Red Blood Count 4.77 M/uL (4.7-6.1); White Blood Count 8.38 K/uL (4.8-10.8)
[2018-12-11 06:05] LABS: BUN Creatinine Ratio 9.2 (10-20); Calcium 8.4 mg/dl (8.5-10.1); Creatinine Clr Calc Pharmacy 147.9 ml/min; Est GFR (African American) 135.2; Est GFR (Non-African American) 116.6; Potassium 3.6 mmol/L (3.5-5.1)
[2018-12-11] MEDS: ACETAMINOPHEN 1,000 MG/100 ML VIAL IV PRN ×2 (08:56→23:49)
--- NOTE | 2018-12-11 09:35 | Surgery Progress Note ---
Date of Service December 11, 2018 Assessment & Plan (1) Postoperative abdominal pain: HD # 2, POD # 10 s/p laparoscopic appendectomy Phlegmon in the right lower quadrant without drainable collection Etiology is unclear after appendectomy low grade fever, tmax 37.8 no leukocytosis mildly tachycardic We will continue with IV antibiotics and conservative measures. advance to clears today Continue IV fluids at 150 mls/hr cbc and bmp am labs encourage ambulation Dr. Conteh has seen and examined pt, agrees with above Subjective sleeping a lot this morning low grade fevers pain seems slightly better, IV tylenol helps passing gas, no bowel movement some nausea but resolved, no vomiting Physical Exam Constitutional: WD/WN, vitals as above not ill appearing Gastrointestinal (Abdomen): Inspection/Auscultation: abdomen normal to inspection; abdomen not distended Percussion/Palpation: + abdomen tender (RLQ on deep palpation, improving) and abdomen soft; no guarding and abdomen not rigid Skin: no rashes, warm and dry + incision (clean/dry/intact) Psychiatric: A+Ox3, euthymic affect Results & Data Vital Signs (Past 12 Hours) Vital Signs Temp Pulse Resp BP Pulse Ox 12/11/18 07:15 37.5 C 91 H 16 122/76 96 12/10/18 23:22 37.8 C H 99 H 16 122/75 98 Laboratory Results 12/11/18 12/11/18 Range/Units 04:50 04:50 WBC 8.38 (4.8-10.8) K/uL RBC 4.77 (4.7-6.1) M/uL Hgb 14.0 (14.0-18.0) g/dL Hct 39.5 L (42-52) % MCV 82.8 (80-100) fL MCH 29.4 (25-34) pg MCHC 35.4 (32-36) g/dL RDW Std Deviation 38.1 (36.4-46.3) fL RDW Coeff of Domenica 12.6 (11.5-14.5) % Plt Count 194 (130-400) K/uL MPV 10.9 H (7.4-10.4) fL Immature Gran % (Auto) 0.1 % Neut % (Auto) 61.3 % Lymph % (Auto) 16.9 % [place] % (Auto) 15.2 % Eos % (Auto) 6.4 % Baso % (Auto) 0.1 % Immature Gran # (Auto) 0.01 (0.00-0.02) K/uL Neut # (Auto) 5.13 (1.4-6.5) K/uL Lymph # (Auto) 1.42 (1.2-3.4) K/uL [place] # (Auto) 1.27 H (0.11-0.59) K/uL Eos # (Auto) 0.54 H (0-0.5) K/uL Baso # (Auto) 0.01 (0-0.2) K/uL Sodium 141 (136-145) mmol/L Potassium 3.6 (3.5-5.1) mmol/L Chloride 106 (98-107) mmol/L Carbon Dioxide 25 (21-32) mmol/L Anion Gap 10.0 (3-11) BUN 8 (7-18) mg/dl Creatinine 0.90 (0.6-1.4) mg/dl Est Cr Clr Drug Dosing 147.9 ml/min Est GFR ( Amer) 135.2 Est GFR (Non-Af Amer) 116.6 BUN/Creatinine Ratio 9.2 L (10-20) Glucose 76 (70-99) mg/dl Calcium 8.4 L (8.5-10.1) mg/dl
[2018-12-11] MEDS: DOCUSATE SODIUM 100 MG CAP PO SCH ×2 (09:43→21:06)
[2018-12-11] MEDS ORDERED: PIPERACILLIN/TAZOBACTAM 3.375 GM in DEXTROSE 5% 100 ML IV ONE (16:00)
[2018-12-12] MEDS: LACTATED RINGER'S 1,000 ML IV SCH ×4 (03:41→23:26)
[2018-12-12 05:23] LABS: Basophils # (auto) 0.02 K/uL (0-0.2); Basophils % (auto) 0.3 %; Eosinophils # (auto) 0.66 K/uL (0-0.5); Eosinophils % (auto) 10.1 %; Hematocrit (blood only) 38.7 % (42-52); Hemoglobin 13.2 g/dL (14.0-18.0); Immature Granulocytes # (auto) 0.01 K/uL (0.00-0.02); Immature Granulocytes % (auto) 0.2 %; Lymphocytes # (auto) 1.55 K/uL (1.2-3.4); Lymphocytes % (auto) 23.8 %; Mean Corpuscular Hemoglobin 28.3 pg (25-34); Mean Corpuscular Hgb Conc 34.1 g/dL (32-36); Mean Platelet Volume 10.5 fL (7.4-10.4); Monocytes # (auto) 0.85 K/uL (0.11-0.59); Neutrophils # (auto) 3.43 K/uL (1.4-6.5); Neutrophils % (auto) 52.6 %; Platelet Count 209 K/uL (130-400); RDW Coefficient of Variation 12.7 % (11.5-14.5); RDW Standard Deviation 38.1 fL (36.4-46.3); Red Blood Count 4.66 M/uL (4.7-6.1); White Blood Count 6.52 K/uL (4.8-10.8)
[2018-12-12] MEDS: PIPERACILLIN/TAZOBACTAM 3.375 GM in DEXTROSE 5% 100 ML IV SCH ×3 (05:24→21:27)
[2018-12-12 06:02] LABS: BUN Creatinine Ratio 4.8 (10-20); Calcium 8.5 mg/dl (8.5-10.1); Creatinine Clr Calc Pharmacy 143.1 ml/min; Est GFR (African American) 129.9; Est GFR (Non-African American) 112.1; Potassium 3.5 mmol/L (3.5-5.1)
--- NOTE | 2018-12-12 08:26 | Surgery Progress Note ---
Date of Service December 12, 2018 Assessment & Plan (1) Postoperative abdominal pain: HD # 3, POD # 11 s/p laparoscopic appendectomy Phlegmon in the right lower quadrant without drainable collection Etiology is unclear after appendectomy low grade fever, tmax 37.8 no leukocytosis mildly tachycardic in the 90's We will continue with IV antibiotics and conservative measures. continue clears today Continue IV fluids at 150 mls/hr repeat CT scan of abd/pelvis with IV and oral contrast to ensure no fluid collection cbc and bmp am labs encourage ambulation Dr. Conteh has seen and examined pt, agrees with above Subjective feeling good, about same as yesterday IV Tylenol controls pain well no n/v tolerated clears still having low grade fevers once Tylenol wears off Physical Exam Constitutional: WD/WN, vitals as above no acute distress Gastrointestinal (Abdomen): Inspection/Auscultation: abdomen normal to inspection and normal bowel sounds; abdomen not distended Percussion/Palpation: + abdomen tender (RLQ on deep palpation, continues to improve) and abdomen soft; no guarding and abdomen not rigid Skin: no rashes, warm and dry Psychiatric: A+Ox3, euthymic affect Results & Data Vital Signs (Past 12 Hours) Vital Signs Temp Pulse Resp BP Pulse Ox 12/12/18 07:12 37.0 C 80 16 118/76 97 12/12/18 01:53 36.8 C 12/11/18 23:23 37.8 C H 91 H 18 122/81 95 Laboratory Results 12/12/18 12/12/18 Range/Units 05:11 05:11 WBC 6.52 (4.8-10.8) K/uL RBC 4.66 L (4.7-6.1) M/uL Hgb 13.2 L (14.0-18.0) g/dL Hct 38.7 L (42-52) % MCV 83.0 (80-100) fL MCH 28.3 (25-34) pg MCHC 34.1 (32-36) g/dL RDW Std Deviation 38.1 (36.4-46.3) fL RDW Coeff of Domenica 12.7 (11.5-14.5) % Plt Count 209 (130-400) K/uL MPV 10.5 H (7.4-10.4) fL Immature Gran % (Auto) 0.2 % Neut % (Auto) 52.6 % Lymph % (Auto) 23.8 % [place] % (Auto) 13.0 % Eos % (Auto) 10.1 % Baso % (Auto) 0.3 % Immature Gran # (Auto) 0.01 (0.00-0.02) K/uL Neut # (Auto) 3.43 (1.4-6.5) K/uL Lymph # (Auto) 1.55 (1.2-3.4) K/uL [place] # (Auto) 0.85 H (0.11-0.59) K/uL Eos # (Auto) 0.66 H (0-0.5) K/uL Baso # (Auto) 0.02 (0-0.2) K/uL Sodium 142 (136-145) mmol/L Potassium 3.5 (3.5-5.1) mmol/L Chloride 109 H (98-107) mmol/L Carbon Dioxide 27 (21-32) mmol/L Anion Gap 6.0 (3-11) BUN 5 L (7-18) mg/dl Creatinine 0.93 (0.6-1.4) mg/dl Est Cr Clr Drug Dosing 143.1 ml/min Est GFR ( Amer) 129.9 Est GFR (Non-Af Amer) 112.1 BUN/Creatinine Ratio 4.8 L (10-20) Glucose 89 (70-99) mg/dl Calcium 8.5 (8.5-10.1) mg/dl
[2018-12-12] MEDS: DOCUSATE SODIUM 100 MG CAP PO SCH ×2 (08:59→20:19)
[2018-12-12] MEDS ORDERED: IOVERSOL 100ml IV PRN (11:02)
--- NOTE | 2018-12-12 11:14 | CT Scan Report ---
CT abd pelvis oral and IV con CLINICAL HISTORY: 28 years-old Male presenting with POD # 11 lap appendectomy, f/u CT 12/09, phlegmon, fever and abdominal pain status post appendectomy. TECHNIQUE: Multidetector CT of the abdomen and pelvis was performed after the administration of oral and intravenous contrast. IV contrast: 94 mL of Optiray 320. One or more dose lowering techniques wer e used consistent with the principles of ALARA (as low as reasonably achievable), including automatic exposure control, mA or kV adjustment to individual patient size, and/or use of iterative reconstruc tion. COMPARISON: 12/09/2018 and 11/30/2018. CT DOSE (mGy.cm): The estimated cumulative dose is 1059.42 mGycm. FINDINGS: Associate Project Manager topogram: Unremarkable. Lung bases: Normal heart size. No pericardial or pleural effusion. Minimal dependent changes likely a telectasis. Liver: Normal morphology. No liver lesion. Patent hepatic vasculature. Biliary: No intrahepatic or extrahepatic biliary ductal dilatation. Normal gallbladder. Pancreas: Normal. Spleen: Normal. Adrenal glands: Normal. Kidneys and ureters: Normal. No hydronephrosis. Bladder: Circumferential bladder wall thickening. Pelvic organs: Prostate and seminal vesicles normal. Bowel: Wall thickening of the proximal to mid sigmoid colon increased or new from prior. No bowel obs truction. Postsurgical changes of appendectomy. Significant wall thickening of the cecum. Exuberant i nflammatory change in the appendectomy bed with pronounced right lower quadrant peritoneal thickening . 1.4 cm developing collection may be present along the terminal ileum (series 3 image 301). This latif s not have significant central fluid component at this time. No extraluminal gas. No extravasation of oral contrast. Peritoneal cavity: Peritoneal thickening is also noted to a lesser degree in the left lower quadrant and pelvis. Fluid in the pelvis is not convincingly loculated. No free intraperitoneal gas. Lymph nodes: No enlarged lymph nodes in the abdomen or pelvis. Vasculature: Aorta and IVC patent and normal in caliber. Abdominal wall: Focal infiltration in the left anterior abdominal wall related to prior trocar site. No associated fluid collection to suggest abscess. Musculoskeletal: Normal. IMPRESSION: 1. Exuberant inflammatory change in the appendectomy bed consistent with phlegmon. A 1.4 cm collecti on adjacent to or along the serosa of the terminal ileum to represent early abscess though there is n o significant fluid component centrally at this time. Close follow-up is recommended. 2. Peritoneal thickening is evidence of peritonitis with reactive small free fluid in the pelvis. 3. The presence of bladder wall thickening is likely also secondarily reactive as it is wall thicken ing of the sigmoid colon. Electronically signed by: Sterling Sam M.D. 12/12/2018 11:13 AM
[2018-12-13 05:32] LABS: Basophils # (auto) 0.02 K/uL (0-0.2); Basophils % (auto) 0.3 %; Eosinophils # (auto) 0.87 K/uL (0-0.5); Hematocrit (blood only) 35.7 % (42-52); Hemoglobin 12.2 g/dL (14.0-18.0); Immature Granulocytes # (auto) 0.02 K/uL (0.00-0.02); Immature Granulocytes % (auto) 0.3 %; Lymphocytes # (auto) 1.36 K/uL (1.2-3.4); Lymphocytes % (auto) 18.7 %; Mean Corpuscular Hemoglobin 28.4 pg (25-34); Mean Corpuscular Hgb Conc 34.2 g/dL (32-36); Mean Platelet Volume 10.3 fL (7.4-10.4); Neutrophils # (auto) 4.19 K/uL (1.4-6.5); Neutrophils % (auto) 57.7 %; Platelet Count 213 K/uL (130-400); RDW Coefficient of Variation 12.8 % (11.5-14.5); RDW Standard Deviation 38.6 fL (36.4-46.3); White Blood Count 7.26 K/uL (4.8-10.8)
[2018-12-13] MEDS: LACTATED RINGER'S 1,000 ML IV SCH ×3 (06:01→19:54)
[2018-12-13] MEDS: PIPERACILLIN/TAZOBACTAM 3.375 GM in DEXTROSE 5% 100 ML IV SCH ×3 (06:01→22:28)
[2018-12-13 06:11] LABS: BUN Creatinine Ratio 3.3 (10-20); Calcium 8.4 mg/dl (8.5-10.1); Creatinine Clr Calc Pharmacy 133.1 ml/min; Est GFR (Non-African American) 102.7; Potassium 3.4 mmol/L (3.5-5.1)
--- NOTE | 2018-12-13 08:24 | Surgery Progress Note ---
Date of Service December 13, 2018 Assessment & Plan (1) Postoperative abdominal pain: Continues to improve clinically CT finding of 1.4 cm collection noted Would continue with conservative management including antibiotics Can advance to a full liquid diet Encouraged ambulation Subjective Less pain again today Denies nausea and vomiting Tolerated clear liquids Ambulating Temperature curve has decreased Physical Exam Gastrointestinal (Abdomen): Inspection/Auscultation: normal bowel sounds; abdomen not distended Percussion/Palpation: + abdomen tender (Less tender again today) and abdomen soft Results & Data Vital Signs (Past 12 Hours) Vital Signs Temp Pulse Resp BP Pulse Ox 12/13/18 00:36 37.2 C 12/12/18 23:00 37.7 C H 93 H 16 124/81 97 12/12/18 21:30 37.[address] abd pelvis oral and IV con CLINICAL HISTORY: 28 years-old Male presenting with POD # 11 lap appendectomy, f/u CT 12/09, phlegmon, fever and abdominal pain status post appendectomy. TECHNIQUE: Multidetector CT of the abdomen and pelvis was performed after the administration of oral and intravenous contrast. IV contrast: 94 mL of Optiray 320. One or more dose lowering techniques were used consistent with the principles of ALARA (as low as reasonably achievable), including automatic exposure control, mA or kV adjustment to individual patient size, and/or use of iterative reconstruction. COMPARISON: 12/09/2018 and 11/30/2018. CT DOSE (mGy.cm): The estimated cumulative dose is 1059.42 mGycm. FINDINGS: Solar Panel Technician topogram: Unremarkable. Lung bases: Normal heart size. No pericardial or pleural effusion. Minimal dependent changes likely atelectasis. Liver: Normal morphology. No liver lesion. Patent hepatic vasculature. Biliary: No intrahepatic or extrahepatic biliary ductal dilatation. Normal gallbladder. Pancreas: Normal. Spleen: Normal. Adrenal glands: Normal. Kidneys and ureters: Normal. No hydronephrosis. Bladder: Circumferential bladder wall thickening. Pelvic organs: Prostate and seminal vesicles normal. Bowel: Wall thickening of the proximal to mid sigmoid colon increased or new from prior. No bowel obstruction. Postsurgical changes of appendectomy. Significant wall thickening of the cecum. Exuberant inflammatory change in the appendectomy bed with pronounced right lower quadrant peritoneal thickening. 1.4 cm developing collection may be present along the terminal ileum (series 3 image 301). This does not have significant central fluid component at this time. No extraluminal gas. No extravasation of oral contrast. Peritoneal cavity: Peritoneal thickening is also noted to a lesser degree in the left lower quadrant and pelvis. Fluid in the pelvis is not convincingly loculated. No free intraperitoneal gas. Lymph nodes: No enlarged lymph nodes in the abdomen or pelvis. Vasculature: Aorta and IVC patent and normal in caliber. Abdominal wall: Focal infiltration in the left anterior abdominal wall related to prior trocar site. No associated fluid collection to suggest abscess. Musculoskeletal: Normal. IMPRESSION: 1. Exuberant inflammatory change in the appendectomy bed consistent with phlegmon. A 1.4 cm collection adjacent to or along the serosa of the terminal ileum to represent early abscess though there is no significant fluid component centrally at this time. Close follow-up is recommended. 2. Peritoneal thickening is evidence of peritonitis with reactive small free fluid in the pelvis. 3. The presence of bladder wall thickening is likely also secondarily reactive as it is wall thickening of the sigmoid colon.
[2018-12-13] MEDS: DOCUSATE SODIUM 100 MG CAP PO SCH ×2 (08:58→19:55)
[2018-12-14] MEDS: LACTATED RINGER'S 1,000 ML IV SCH ×4 (02:31→23:07)
[2018-12-14] MEDS: PIPERACILLIN/TAZOBACTAM 3.375 GM in DEXTROSE 5% 100 ML IV SCH ×3 (06:00→21:35)
--- NOTE | 2018-12-14 06:44 | Surgery Progress Note ---
Date of Service December 14, 2018 Assessment & Plan (1) Postoperative abdominal pain: Subjectively and objectively improving Temperature curve continues to decrease Tolerated full liquid diet yesterday Denies nausea and vomiting Bowel function is good Will advance to soft diet today Subjective Continues to feel well Pain has decreased Passing bowels and flatus Denies nausea and vomiting Tolerated full liquid diet T-max 37 2 Physical Exam Gastrointestinal (Abdomen): Inspection/Auscultation: abdomen not distended Percussion/Palpation: + abdomen tender (Much less tender) and abdomen soft Results & Data Vital Signs (Past 12 Hours) Vital Signs Temp Pulse Resp BP Pulse Ox 12/13/18 23:00 37.1 C 82 16 114/74 99 12/13/18 19:57 37.0 C
[2018-12-14] MEDS: DOCUSATE SODIUM 100 MG CAP PO SCH ×2 (10:13→21:35)
[2018-12-15] MEDS: PIPERACILLIN/TAZOBACTAM 3.375 GM in DEXTROSE 5% 100 ML IV SCH ×3 (05:40→21:14)
[2018-12-15] MEDS: LACTATED RINGER'S 1,000 ML IV SCH ×3 (05:40→19:15)
[2018-12-15] MEDS: DOCUSATE SODIUM 100 MG CAP PO SCH ×2 (09:18→20:18)
--- NOTE | 2018-12-15 15:04 | Surgery Progress Note ---
Date of Service December 15, 2018 Assessment & Plan (1) Postoperative abdominal pain: Continues to improve with right lower quadrant phlegmon Would continue IV antibiotics through the weekend and if continues to improve consider discharge for Tuesday especially considering that he still has low-grade temperature elevations Continue regular diet Encouraged ambulation Subjective Continues to to have decreasing amounts of pain which is almost resolved Passing his bowels Still has temperature elevations in the low 37 range No chills Physical Exam Gastrointestinal (Abdomen): Inspection/Auscultation: abdomen not distended Percussion/Palpation: + abdomen tender (Minimal right lower quadrant) and abdomen soft Results & Data Vital Signs (Past 12 Hours) Vital Signs Temp Pulse Resp BP Pulse Ox 12/15/18 07:26 37.0 C 81 18 104/65 95
[2018-12-16] MEDS: LACTATED RINGER'S 1,000 ML IV SCH ×2 (01:14→07:55)
[2018-12-16] MEDS: PIPERACILLIN/TAZOBACTAM 3.375 GM in DEXTROSE 5% 100 ML IV SCH ×3 (05:37→21:18)
[2018-12-16 05:56] LABS: Basophils # (auto) 0.03 K/uL (0-0.2); Basophils % (auto) 0.3 %; Eosinophils # (auto) 1.71 K/uL (0-0.5); Eosinophils % (auto) 16.6 %; Hematocrit (blood only) 40.4 % (42-52); Hemoglobin 13.9 g/dL (14.0-18.0); Immature Granulocytes # (auto) 0.05 K/uL (0.00-0.02); Immature Granulocytes % (auto) 0.5 %; Lymphocytes # (auto) 1.43 K/uL (1.2-3.4); Lymphocytes % (auto) 13.9 %; Mean Corpuscular Hgb Conc 34.4 g/dL (32-36); Mean Corpuscular Volume 84.2 fL (80-100); Mean Platelet Volume 10.3 fL (7.4-10.4); Monocytes % (auto) 8.8 %; Neutrophils # (auto) 6.16 K/uL (1.4-6.5); Neutrophils % (auto) 59.9 %; Platelet Count 282 K/uL (130-400); RDW Coefficient of Variation 12.6 % (11.5-14.5); RDW Standard Deviation 38.6 fL (36.4-46.3); White Blood Count 10.28 K/uL (4.8-10.8)
[2018-12-16] MEDS: DOCUSATE SODIUM 100 MG CAP PO SCH ×2 (08:35→21:18)
--- NOTE | 2018-12-16 09:27 | Surgery Progress Note ---
Date of Service December 16, 2018 Assessment & Plan (1) Postoperative abdominal pain: 12/16/18 Patient overall is feeling better WBC 10.2 and patient afebrile over 24 hours Will continue on IV zosyn through the weekend as CT scan shows phlegmon and c/f early abscess formation Okay to shower Will d/c IVF Patient seen and examined with Dr. Wright Subjective Patient offers no complaints overnight. Says he is feeling well and better than when he was admitted. Tolerating a diet and having + bowel function. Ambulating the halls every hour or so. Physical Exam Physical Exam: awake/alert Gastrointestinal (Abdomen): Percussion/Palpation: abdomen soft; abdomen nontender Results & Data Vital Signs (Past 12 Hours) Vital Signs Temp Pulse Resp BP Pulse Ox 12/16/18 07:00 37.2 C 16 L 16 123/76 96 12/15/18 23:31 37.2 C 86 14 124/78 97 PG Care Time/CCT Total # of Minutes Spent Total Time Spent with Patient: Total time spent is greater than 50% in coordination of care (as documented) at patient's floor/unit and/or counseling patient:
[2018-12-16] MEDS: ACETAMINOPHEN 325 MG TAB PO PRN (17:45)
[2018-12-17 05:51] LABS: Basophils # (auto) 0.04 K/uL (0-0.2); Basophils % (auto) 0.4 %; Eosinophils # (auto) 2.39 K/uL (0-0.5); Eosinophils % (auto) 22.3 %; Hematocrit (blood only) 39.5 % (42-52); Hemoglobin 13.6 g/dL (14.0-18.0); Immature Granulocytes # (auto) 0.05 K/uL (0.00-0.02); Immature Granulocytes % (auto) 0.5 %; Lymphocytes % (auto) 12.1 %; Mean Corpuscular Hemoglobin 28.7 pg (25-34); Mean Corpuscular Hgb Conc 34.4 g/dL (32-36); Mean Corpuscular Volume 83.3 fL (80-100); Monocytes # (auto) 0.98 K/uL (0.11-0.59); Monocytes % (auto) 9.1 %; Neutrophils # (auto) 5.96 K/uL (1.4-6.5); Neutrophils % (auto) 55.6 %; Platelet Count 299 K/uL (130-400); RDW Coefficient of Variation 12.7 % (11.5-14.5); RDW Standard Deviation 38.5 fL (36.4-46.3); Red Blood Count 4.74 M/uL (4.7-6.1); White Blood Count 10.72 K/uL (4.8-10.8)
[2018-12-17] MEDS: PIPERACILLIN/TAZOBACTAM 3.375 GM in DEXTROSE 5% 100 ML IV SCH ×3 (05:57→21:29)
[2018-12-17 06:23] LABS: BUN Creatinine Ratio 10.3 (10-20); Creatinine Clr Calc Pharmacy 117.8 ml/min; Est GFR (African American) 102.7; Est GFR (Non-African American) 88.6; Potassium 3.9 mmol/L (3.5-5.1)
[2018-12-17] MEDS: DOCUSATE SODIUM 100 MG CAP PO SCH ×2 (08:41→21:29)
--- NOTE | 2018-12-17 09:21 | Surgery Progress Note ---
Date of Service December 17, 2018 Assessment & Plan (1) Postoperative abdominal pain: seen with Dr. Wright cont IV abx Dr. Conteh to resume care tomorrow Subjective no complaints, tolerating diet Physical Exam Gastrointestinal (Abdomen): Percussion/Palpation: abdomen soft; abdomen nontender Results & Data Vital Signs (Past 12 Hours) Vital Signs Temp Pulse Resp BP BP Pulse Ox 12/17/18 07:15 37.0 C 86 14 113/70 97 12/16/18 23:38 36.7 C 75 14 108/70 97 PG Care Time/CCT Total # of Minutes Spent Total Time Spent with Patient: Total time spent is greater than 50% in coordination of care (as documented) at patient's floor/unit and/or counseling patient:
[2018-12-17] MEDS ORDERED: PIPERACILL/TAZOBAC CONSULT ACTIVE PRN (11:40)
[2018-12-17] MEDS: ACETAMINOPHEN 325 MG TAB PO PRN (23:43)
[2018-12-18] MEDS: PIPERACILLIN/TAZOBACTAM 3.375 GM in DEXTROSE 5% 100 ML IV SCH ×2 (05:12→14:34)
[2018-12-18 06:03] LABS: Basophils # (auto) 0.05 K/uL (0-0.2); Basophils % (auto) 0.5 %; Eosinophils # (auto) 2.71 K/uL (0-0.5); Eosinophils % (auto) 28.1 %; Hematocrit (blood only) 39.7 % (42-52); Hemoglobin 13.4 g/dL (14.0-18.0); Immature Granulocytes # (auto) 0.05 K/uL (0.00-0.02); Immature Granulocytes % (auto) 0.5 %; Lymphocytes # (auto) 1.59 K/uL (1.2-3.4); Lymphocytes % (auto) 16.5 %; Mean Corpuscular Hemoglobin 28.3 pg (25-34); Mean Corpuscular Hgb Conc 33.8 g/dL (32-36); Mean Corpuscular Volume 83.8 fL (80-100); Mean Platelet Volume 10.2 fL (7.4-10.4); Monocytes # (auto) 0.78 K/uL (0.11-0.59); Monocytes % (auto) 8.1 %; Neutrophils # (auto) 4.48 K/uL (1.4-6.5); Neutrophils % (auto) 46.3 %; Platelet Count 316 K/uL (130-400); RDW Coefficient of Variation 12.7 % (11.5-14.5); Red Blood Count 4.74 M/uL (4.7-6.1); White Blood Count 9.66 K/uL (4.8-10.8)
[2018-12-18 06:32] LABS: Calcium 8.9 mg/dl (8.5-10.1); Creatinine Clr Calc Pharmacy 116.8 ml/min; Est GFR (African American) 101.6; Est GFR (Non-African American) 87.7; Potassium 3.8 mmol/L (3.5-5.1)
[2018-12-18 07:22] VITALS: BP 105/67; PULSE 75; TEMP 98.6; O2SAT 96
[2018-12-18] MEDS: DOCUSATE SODIUM 100 MG CAP PO SCH (08:53)
--- NOTE | 2018-12-18 14:39 | Surgery Progress Note ---
Date of Service December 18, 2018 Assessment & Plan (1) Postoperative abdominal pain: Continues to improve with right lower quadrant phlegmon minimal pain no fevers no n/v tolerating diet Plan: Discharge home today with 7 days of PO Augmentin and Flagyl (sent to pharmacy) f/u surgery office in 1 week discharge instructions reviewed Dr. Conteh has seen and examined pt, agrees with above Subjective feeling good ready to go home did not have pain all weekend and then had a sharp pain in RLQ last night, not persistent no pain today no n/v tolerating low fiber diet Physical Exam Constitutional: WD/WN, vitals as above Gastrointestinal (Abdomen): Inspection/Auscultation: abdomen normal to inspection Percussion/Palpation: + abdomen tender (RLQ on deep palpation minimal) Skin: no rashes, warm and dry Psychiatric: A+Ox3, euthymic affect Results & Data Vital Signs (Past 12 Hours) Vital Signs Temp Pulse Resp BP Pulse Ox 12/18/18 07:21 37 C 75 18 105/67 96 Laboratory Results 12/18/18 12/18/18 Range/Units 05:29 05:29 WBC 9.66 (4.8-10.8) K/uL RBC 4.74 (4.7-6.1) M/uL Hgb 13.4 L (14.0-18.0) g/dL Hct 39.7 L (42-52) % MCV 83.8 (80-100) fL MCH 28.3 (25-34) pg MCHC 33.8 (32-36) g/dL RDW Std Deviation 39.0 (36.4-46.3) fL RDW Coeff of Domenica 12.7 (11.5-14.5) % Plt Count 316 (130-400) K/uL MPV 10.2 (7.4-10.4) fL Immature Gran % (Auto) 0.5 % Neut % (Auto) 46.3 % Lymph % (Auto) 16.5 % [place] % (Auto) 8.1 % Eos % (Auto) 28.1 % Baso % (Auto) 0.5 % Immature Gran # (Auto) 0.05 H (0.00-0.02) K/uL Neut # (Auto) 4.48 (1.4-6.5) K/uL Lymph # (Auto) 1.59 (1.2-3.4) K/uL [place] # (Auto) 0.78 H (0.11-0.59) K/uL Eos # (Auto) 2.71 H (0-0.5) K/uL Baso # (Auto) 0.05 (0-0.2) K/uL Sodium 141 (136-145) mmol/L Potassium 3.8 (3.5-5.1) mmol/L Chloride 107 (98-107) mmol/L Carbon Dioxide 27 (21-32) mmol/L Anion Gap 7.0 (3-11) BUN 11 (7-18) mg/dl Creatinine 1.14 (0.6-1.4) mg/dl Est Cr Clr Drug Dosing 116.8 ml/min Est GFR ( Amer) 101.6 Est GFR (Non-Af Amer) 87.7 BUN/Creatinine Ratio 10.0 (10-20) Glucose 89 (70-99) mg/dl Calcium 8.9 (8.5-10.1) mg/dl
--- NOTE | 2018-12-19 10:18 | Discharge Summary ---
Date of Service December 19, 2018 Admission HPI Per Admitting Provider HPI: pt is a 28 year-old male who is post-op laparoscopic appendectomy, POD 8, pt presents to ER with abdominal pain and fever, fever T 101, the abdominal pain is located at RLQ area, pt denies nausea, no vomiting, last BM 2 days ago, at ER pt's HR 120, pt had CT scan at ER Dx -Extensive stranding about the cecum and terminal ileum, centered at the appendectomy site, no definable abscess, moderate volume free fluid in the right lower abdominal quadrant and pelvis. Principal Diagnosis Phlegmon of cecum s/p appendectomy Fever Tachycardia Discharge Data Allergies Allergy/AdvReac Type Severity Reaction Status Date / Time No Known Allergies Allergy Unverified 12/09/18 01:26 Consultations 12/09/18 03:32 ED Decision to Admit Stat Ordered Studies 12/09/18 01:12 CT abd pelvis IV con only Urgent 12/12/18 08:22 CT abd pelvis oral and IV con Routine Hospital Course (1) Postoperative abdominal pain: Patient presented to ER POD # 7 s/p laparoscopic appendectomy with fevers and severe generalized abdominal pain. CT scan showing moderate wall thickening of cecum and terminal ileum with extensive inflammation suspecting of a phlegmon but no drainable fluid collection. He was admitted to medical/surgical floor and started on IV Zosyn, IV Fluids, pain management, and kept NPO. From 12/09- 12/12 he was having low grade fevers, Tmax of 37.8 and was persistently tachycardic in low 90's. Urine output was adequate. He was clinically improving via abdominal examination and diet was slowly advanced to clears and then fulls. ON 12/12 , repeat CT scan with oral and IV Contrast of abd/pelvis showed persistent phlegmon with now 1.4 cm collection adjacent to terminal ileum which could represent abscess however there was no centrally fluid component. There were also secondary thickening of the bladder and sigmoid colon however likely reactive. IV Zosyn was continued. Diet advanced slowly. He continued to clinically improve. No further documented fevers and tachycardia improved to low 80's. He had positive bowel function. ON HD # 9 he was discharged home on oral Augmentin and Flagyl for another 7 day course and close follow-up in 1 week. Overall hospital course uneventful. (2) Tachycardia: as above, likely secondary to inflammatory reaction and pain Total Time Total Time Spent Total Time Spent (In Minutes): 20 Total Time Includes: Examination of the Patient, Discharge Planning and Medication Reconciliation Discharge Plan Discharge Items Patient Disposition: Home - Self-Care Reason For Visit: VOMITING,LOWER ABOMINAL PAIN Discharge Diagnosis: inflammation of cecum s/p appendectomy Condition on Discharge: Good Activity: Per Instructions section Non-emergency contact: Surgeon Call non-emergency contact if: your symptoms worsen, your pain is not controlled, your pain is worsening, your pain is concerning for you, you have a fever, your temperature is above 101, your wound has increased redness, your wound has increased drainage and your wound pain has increased Follow-up/Referrals: PCP,NO [Primary Care Provider] - Diet: Low Fiber Addtl Attending Provider Instructions: Post-Surgical ~Discharge Instructions Activity Recommendations: - lifting limitation: (10 pounds for 2 weeks), - exercise/sex/sports limit: (nonstrenuous for 2 weeks), - driving or machine use limit: you may drive as long as you are not taking pain medication and you are pain free - Shower/bathe limit: may shower Diet: - Low fiber diet SPECIAL CARE INSTRUCTIONS: - May shower. - Call the surgeon's office with any questions or concerns - - (ex. temperature higher than 101 degrees F, excessive bleeding or pain). MEDICATIONS: - Resume previous medications unless instructed otherwise by your surgeon. - Ibuprofen 600 mg every 6 hours with food - Percocet 1 every 4 hours, as needed for pain FOLLOW UP VISIT: - If not already scheduled, please call the office to schedule a one week follow-up appointment. Office number Pending Studies at Discharge: No Stand-Alone Forms: My [facility] [employer], Work/School Release (Inpt), Smoking Cessation Medications and DC Order Prescriptions: New amoxicillin-pot clavulanate [Augmentin] 875-125 mg tablet 1 tab PO BID Qty: 14 RF: 0 metronidazole [Flagyl] 500 mg tablet 500 mg PO TID Qty: 21 RF: 0 Continued ibuprofen [Motrin IB] 200 mg Capsule 400 mg PO QID PRN (Reason: Fever Or Pain) RF: 0 Discharge Orders: Discharge Order (Routine); Ordered 12/18/18 Ordered By: Laureen Caballero/Other Patient Handouts: Diet Low Residue Admission Data Admit Date/Time: 12/09/18 05:38 Attending Provider: Jesse Conteh Admit Provider: Ki Mcelroy Primary Care Provider: PCP,NO Other Providers: Ki Mcelroy Other Interventions: Discharge Summary Assessment (RN) Last Done: 12/18/18 14:35 DC Date/Time DO NOT enter until pt leaves facility: 12/18/18 15:05
--- NOTE | 2018-12-20 10:29 | Surgery Consultation ---
Date of Consultation December 20, 2018 Assessment & Plan (1) Postoperative abdominal pain: Patient presented to ER POD # 7 s/p laparoscopic appendectomy with fevers and severe generalized abdominal pain. CT scan showing moderate wall thickening of cecum and terminal ileum with extensive inflammation suspecting of a phlegmon but no drainable fluid collection. He was admitted to medical/surgical floor and started on IV Zosyn, IV Fluids, pain management, and kept NPO. From 12/09- 12/12 he was having low grade fevers, Tmax of 37.8 and was persistently tachycardic in low 90's. Urine output was adequate. He was clinically improving via abdominal examination and diet was slowly advanced to clears and then fulls. ON 12/12 , repeat CT scan with oral and IV Contrast of abd/pelvis showed persistent phlegmon with now 1.4 cm collection adjacent to terminal ileum which could represent abscess however there was no centrally fluid component. There were also secondary thickening of the bladder and sigmoid colon however likely reactive. IV Zosyn was continued. Diet advanced slowly. He continued to clinically improve. No further documented fevers and tachycardia improved to low 80's. He had positive bowel function. ON HD # 9 he was discharged home on oral Augmentin and Flagyl for another 7 day course and close follow-up in 1 week. Overall hospital course uneventful. (2) Tachycardia: as above, likely secondary to inflammatory reaction and pain History of Present Illness Attending Physician: Jesse Conteh MD History of Present Illness Date of Consultation December 09, 2018 Assessment & Plan (1) Postoperative abdominal pain: pt is a 28 year-old male who is POD 8 lap appy, today pt develops abdominal pain with fever, IMP: S/P laparoscopic appendectomy, abdominal pain, fever, Plan, I recommend to admit to hospital further treatment, possible to R/O hematoma, or leak, NPO, IV fluid, antibiotic, DR. Conteh will come in today to see pt, pt agrees with the plan, History of Present Illness Attending Physician: Jesse Conteh MD CC: abdominal pain, with fever HPI: pt is a 28 year-old male who is post-op laparoscopic appendectomy, POD 8, pt presents to ER with abdominal pain and fever, fever T 101, the abdominal pain is located at RLQ area, pt denies nausea, no vomiting, last BM 2 days ago, at ER pt's HR 120, pt had CT scan at ER Dx -Extensive stranding about the cecum and terminal ileum, centered at the appendectomy site, no definable abscess, moderate volume free fluid in the right lower abdominal quadrant and pelvis. 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 Beliefs That Will Affect Care: None Current Living Situation: Spouse Current Living Situation Comment: fiance current occupational status: employed Feels Safe at Home: Yes Smoking Status: Current some day smoker Hx Alcohol Use: Yes Alcohol type: beer Hx Substance Use: No Review of Systems Review of Systems: All systems reviewed & are unremarkable except as noted in HPI & below Physical Exam Constitutional: WD/WN, vitals as above well developed and well nourished ENMT: external ear and nose normal, oropharynx normal Neck: trachea midline, no thyromegaly Respiratory: normal respiratory effort, lungs clear to auscultation Cardiovascular: RRR, no murmur, no edema Rate/Rhythm: regular rate, regular rhythm and + tachycardic Heart Sounds: normal S1 and normal S2 Gastrointestinal (Abdomen): soft. tenderness at RLQ, no rebound pain, no distend, BS + Musculoskeletal: no cyanosis or clubbing, extremities motor strength 5/5 Skin: no rashes, warm and dry Neurologic: patellar DTR's 2+ bilat, sensation intact Psychiatric: Orientation: alert and oriented x 3 Results & Data Laboratory Results Abnormal Labs 11/30/18 11/30/18 19:57 19:57 MCHC 36.3 H MPV 11.0 H Glucose 106 H Signed By:<Electronically signed by Ki Mcelroy MD>12/09/18 0423 Created: 12/09/18 0405 Allergies Allergy/AdvReac Type Severity Reaction Status Date / Time No Known Allergies Allergy Unverified 12/09/18 01:26 Home Medications Home Medications Medication Instructions Recorded Confirmed Type ibuprofen [Motrin IB] 400 mg PO QID PRN 12/09/18 12/09/18 History amoxicillin-pot clavulanate 1 tab PO BID #14 tab 12/18/18 Rx [Augmentin] metronidazole [Flagyl] 500 mg PO TID #21 tab 12/18/18 Rx Patient History Medical History (Updated 12/09/18 @ 07:45 by Naseem Baldwin PA-C) Acute appendicitis (Resolved) Surgical History (Updated 12/09/18 @ 07:42 by Naseem Baldwin PA-C) History of appendectomy Social History Preferred Language: [place] Communication Ability: Effective 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 Beliefs That Will Affect Care: None marital status: Single Current Living Situation: Spouse Current Living Situation Comment: fiance current occupational status: employed Feels Safe at Home: Yes Smoking Status: Current some day smoker Tobacco Type: cigarettes ; Second Hand Exposure: No ; Hx Alcohol Use: Yes Alcohol type: beer and wine Hx Substance Use: No Review of Systems Review of Systems: All systems reviewed & are unremarkable except as noted in HPI & below Physical Exam Constitutional: WD/WN, vitals as above well developed and well nourished ENMT: external ear and nose normal, oropharynx normal Neck: trachea midline, no thyromegaly Respiratory: normal respiratory effort, lungs clear to auscultation normal respiratory effort Cardiovascular: RRR, no murmur, no edema Rate/Rhythm: regular rate and regular rhythm Gastrointestinal (Abdomen): mild tenderness at RLQ area, no distend, BS + all incisions heal well, Musculoskeletal: no cyanosis or clubbing, extremities motor strength 5/5 Skin: no rashes, warm and dry Neurologic: patellar DTR's 2+ bilat, sensation intact Psychiatric: A+Ox3, euthymic affect Orientation: alert and oriented x 3 Results & Data Diagnostic Findings Abnormal Labs 12/09/18 12/09/18 12/09/18 01:19 01:19 14:30 RBC Hgb Hct MPV 10.9 H Immature Gran # (Auto) Neut # (Auto) 7.72 H [place] # (Auto) 1.34 H Eos # (Auto) Potassium Chloride BUN BUN/Creatinine Ratio Glucose 107 H Calcium Ur Specific [place] 1.045 H 12/10/18 12/10/18 12/11/18 05:08 05:08 04:50 RBC Hgb 13.9 L Hct 39.8 L MPV 11.3 H Immature Gran # (Auto) Neut # (Auto) 6.84 H [place] # (Auto) 1.27 H Eos # (Auto) Potassium Chloride BUN BUN/Creatinine Ratio 9.4 L 9.2 L Glucose Calcium 8.4 L Ur Specific [place] 12/11/18 12/12/18 12/12/18 04:50 05:11 05:11 RBC 4.66 L Hgb 13.2 L Hct 39.5 L 38.7 L MPV 10.9 H 10.5 H Immature Gran # (Auto) Neut # (Auto) [place] # (Auto) 1.27 H 0.85 H Eos # (Auto) 0.54 H 0.66 H Potassium Chloride 109 H BUN 5 L BUN/Creatinine Ratio 4.8 L Glucose Calcium Ur Specific [place] 12/13/18 12/13/18 12/16/18 05:19 05:19 05:24 RBC 4.30 L Hgb 12.2 L 13.9 L Hct 35.7 L 40.4 L MPV Immature Gran # (Auto) 0.05 H Neut # (Auto) [place] # (Auto) 0.80 H 0.90 H Eos # (Auto) 0.87 H 1.71 H Potassium 3.4 L Chloride BUN 3 L BUN/Creatinine Ratio 3.3 L Glucose Calcium 8.4 L Ur Specific [place] 12/17/18 12/18/18 05:21 05:29 RBC Hgb 13.6 L 13.4 L Hct 39.5 L 39.7 L MPV Immature Gran # (Auto) 0.05 H 0.05 H Neut # (Auto) [place] # (Auto) 0.98 H 0.78 H Eos # (Auto) 2.39 H 2.71 H Potassium Chloride BUN BUN/Creatinine Ratio Glucose Calcium Ur Specific [place] ABDOMEN AND PELVIS CT WITH IV CONTRAST CT DOSE: 633.37 mGy.cm HISTORY: Acute fever with generalized abdominal pain and recent appendectomy Fever, abd pain, appendectomy 12/01/18 TECHNIQUE: Multiaxial CT images of the abdomen and pelvis were performed following the IV administration of 94 cc of Optiray 320, A dose lowering technique was utilized adhering to the principles of ALARA. COMPARISON STUDY: CT abdomen and pelvis 11/30/2018 FINDINGS: Minimal right lung base opacities suggestive of atelectasis. No pneumatosis or pneumoperitoneum identified. The imaged inferior cardiac chambers are unremarkable. Spleen, pancreas, adrenal glands, gallbladder and liver appear unremarkable. Right kidney is unremarkable. Punctate radiodensity of the inferior pole left kidney may reflect a tiny nonobstructing calculus versus contrast. Mild nonspecific urinary bladder wall thickening. Aorta and IVC are unremarkable. No bowel obstruction. Postoperative changes compatible with recent appendectomy. There is moderate wall thickening of the cecum and terminal ileum with extensive mesenteric inflammation. 7 mm nodular densities suggest probable lymph node on image 320 series 3. Small volume of free fluid centered about the abdominal right lower quadrant tracks into the dependent pelvis. No drainable fluid collection. Mildly enlarged lymph nodes measure up to 1.6 x 1.2 cm. Stranding of the anterior abdominal wall likely secondary to laparoscopic technique. The bones appear intact. IMPRESSION: 1. Findings compatible with recent laparoscopic appendectomy. There is wall thickening of the cecum and terminal ileum with extensive adjacent inflammation and small to moderate volume of free fluid. These findings appear greater than expected in the postsurgical setting and are suspicious for phlegmon without drainable fluid collection identified at this time. Surgical consultation advised. 2. Mildly enlarged lymph nodes of the right lower quadrant mesentery are likely reactive. 3. No bowel obstruction or pneumoperitoneum.
== END 2018-12-18 15:05 | disposition home or self-care (01) | DRG 948 ==
LOC: ED 00:56 → 3W 05:38 → SUATTDRO 05:38 → 3W 06:23